=== PATIENT | male | born 1955 | race Caucasian/White ===

== ENCOUNTER → 2017-06-29 06:02 | Outpatient (CLI) | payer BC, SELFPAY ==
[2017-06-29 07:54] LABS: Absolute Lymphocyte Count 1.59 X10^3/ul (0.83-4.51); Absolute Neutrophil Count 5.7 X10^3/uL (2.0-7.7); Basophil# 0.03 X10^3/uL; Basophil% 0.4 % (0-1); Eosinophil# 0.19 X10^3/uL; Eosinophils% 2.3 % (0-5); Hematocrit 45.9 % (40-54); Hemoglobin 15.3 g/dl (13.0-16.5); Lymphocyte # 1.59 X10^3/ul (4.0); Mean Corp Hgb Conc 33.3 g/gl (32-36); Mean Corpuscular Hgb 27.1 pg (27.0-32.0); Mean Corpuscular Volume 81.4 fL (80-94); Mean Platelet Vol. 9.3 fl (6.2-12.0); Monocyte# 0.79 X10^3/uL; Monocyte% 9.4 % (0-10); Neutrophil # 5.73 X10^3/uL (2.7-7.7); Neutrophil % 68.3 % (47-70); Platelet Count 157 K/mm3 (150-450); RBC Distribution Width CV 13.3 % (11.6-14.6); RBC Distribution Width SD 39.9 fl (35.1-43.9); Red Blood Count 5.64 M/mm3 (4.6-6.2); White Blood Count 8.4 K/mm3 (4.4-11.0)
[2017-06-29 07:56] LABS: POSITIVE COUNT NO; POSITIVE DIFFERENTIAL NO; POSITIVE MORPHOLOGY NO
[2017-06-29 08:14] LABS: Erythrocyte Sedimentation Rate 3 mm/hr (0-20)
[2017-06-29 08:20] LABS: Rheumatoid Factor < 10.0 IU/mL (<15)
[2017-07-01 11:02] LABS: ANTINUCLEAR ANTIBODIES DIRECT Negative (Negative)
== END ==
PROVIDERS: Family Provider Family Medicine; PCP Family Medicine; Visit Provider Family Medicine
DX: M25.50 Pain in unspecified joint (principal)
CPT/HCPCS: 36415; 82306; 85025; 85652; 86038; 86431

== ENCOUNTER → 2018-03-11 14:28 | Outpatient (CLI) | payer BC, SELFPAY ==
--- NOTE | 2018-03-11 14:31 | RAD_ITS ---
STUDY: X-RAY - LEFT KNEE REASON FOR EXAM: Male, 62 years old. Left-sided knee pain TECHNIQUE: 3 view(s) of the knee. COMPARISON: None. FINDINGS: There are no acute fractures or dislocations and no knee joint effusion. The quadriceps and patellar tendons are normal. A small bony enthesophyte from the superior margin of the patella is noted. There is no osteoarthritis RAD/Knee 3 Views IMPRESSION: No acute fractures. A small bony enthesophyte from the superior margin of the patella Electronically Signed: Kvng Mares MD at 4:52 EDT Tel , Service support ,
== END ==
PROVIDERS: Family Provider Family Medicine; PCP Family Medicine; Referring Provider Family Medicine; Visit Provider Family Medicine
DX: M25.562 Pain in left knee (principal)
CPT/HCPCS: 73562

== ENCOUNTER → 2018-03-15 14:44 | Outpatient (CLI) | payer BC, SELFPAY ==
[2018-03-15 16:09] LABS: Anion Gap 7 (5-15); BUN 18 mg/dL (7-18); BUN/Creat Ratio 20.4 RATIO (10-20); Calcium,Total 8.3 mg/dL (8.5-10.1); Chloride 102 mmol/L (98-107); Cholesterol 154 mg/dL (200); Creatinine, Serum 0.88 mg/dL (0.70-1.30); EST Glomerular Filtration Rate 93 mL/min (>60); Est Glom Filt Rate - Afr Amer 113 mL/min (>60); Glucose 84 mg/dL (74-106); High Density Lipoprotein 36 mg/dL; PSA,Total - Annual Screen 0.74 ng/mL (0.00-4.00); Potassium 3.4 mmol/L (3.5-5.1); Sodium Level 138 mmol/L (136-145); Triglycerides 124 mg/dL; Very Low Density Lipoprotein 25 mg/dL (5-40)
[2018-03-16 11:39] LABS: Vitamin D,25 Hydroxy 29.1 ng/mL (29.95-100.01)
== END ==
PROVIDERS: Family Provider Family Medicine; PCP Family Medicine; Visit Provider Family Medicine
DX: E55.9 Vitamin D deficiency, unspecified (principal); Z12.5 Encounter for screening for malignant neoplasm of prostate; Z13.1 Encounter for screening for diabetes mellitus; Z13.220 Encounter for screening for lipoid disorders
CPT/HCPCS: 36415; 80048; 80061; 82306; 84153; G0103

== ENCOUNTER → 2019-04-04 08:06 | Outpatient (CLI) | payer BC, SELFPAY ==
[2019-04-04 10:25] LABS: Vitamin D,25 Hydroxy 54.3 ng/mL (29.95-100.01)
[2019-04-04 10:34] LABS: Anion Gap 6 (5-15); BUN 15 mg/dL (7-18); BUN/Creat Ratio 15.1 RATIO (10-20); Calcium,Total 8.6 mg/dL (8.5-10.1); Chloride 105 mmol/L (98-107); Cholesterol 133 mg/dL (200); Creatinine, Serum 0.99 mg/dL (0.70-1.30); EST Glomerular Filtration Rate 81 mL/min (>60); Est Glom Filt Rate - Afr Amer 98 mL/min (>60); Glucose 120 mg/dL (74-106); High Density Lipoprotein 31 mg/dL; Potassium 3.8 mmol/L (3.5-5.1); Sodium Level 136 mmol/L (136-145); Triglycerides 97 mg/dL; Very Low Density Lipoprotein 19 mg/dL (5-40)
== END ==
PROVIDERS: Family Provider Family Medicine; PCP Family Medicine; Referring Provider Family Medicine; Visit Provider Family Medicine
DX: E55.9 Vitamin D deficiency, unspecified (principal); I10 Essential (primary) hypertension
CPT/HCPCS: 36415; 80048; 80061; 82306

== ENCOUNTER → 2019-04-07 05:49 | Outpatient (CLI) | payer BC, SELFPAY ==
[2019-04-07 07:58] LABS: Glucose 104 mg/dL (74-106)
[2019-04-07 08:14] LABS: Hemoglobin A1c 6.2 % (4.2-6.3)
== END ==
PROVIDERS: Family Provider Family Medicine; PCP Family Medicine; Referring Provider Family Medicine; Visit Provider Family Medicine
DX: R73.01 Impaired fasting glucose (principal)
CPT/HCPCS: 36415; 82947; 83036

== ENCOUNTER → 2019-10-04 05:45 | Outpatient (CLI) | payer BC, SELFPAY ==
[2019-10-04 07:28] LABS: Absolute Lymphocyte Count 1.78 X10^3/uL (0.83-4.51); Absolute Neutrophil Count 5.9 X10^3/uL (2.0-7.7); Basophil# 0.05 X10^3/uL; Basophil% 0.6 % (0-1); Eosinophil# 0.15 X10^3/uL; Eosinophils% 1.7 % (0-5); Hemoglobin 14.8 g/dL (13.0-16.5); Lymphocyte # 1.78 X10^3/ul (4.0); Lymphocyte % 20.6 % (19-41); Mean Corp Hgb Conc 32.9 g/dL (32-36); Mean Corpuscular Hgb 27.1 pg (27.0-32.0); Mean Corpuscular Volume 82.3 fL (80-94); Mean Platelet Vol. 9.1 fl (6.2-12.0); Monocyte# 0.69 X10^3/uL; NRBC Flagged by Analyzer 0 % (0-5); Neutrophil # 5.86 X10^3/uL (2.7-7.7); Neutrophil % 68.1 % (47-70); Platelet Count 185 K/mm3 (150-450); RBC Distribution Width CV 13.1 % (11.6-14.6); RBC Distribution Width SD 38.8 fl (35.1-43.9); Red Blood Count 5.47 M/mm3 (4.6-6.2); White Blood Count 8.6 K/mm3 (4.4-11.0)
[2019-10-04 08:06] LABS: Anion Gap 7 (5-15); BUN 18 mg/dL (7-18); BUN/Creat Ratio 17.5 RATIO (10-20); Chloride 104 mmol/L (98-107); Cholesterol 164 mg/dL (200); Creatinine, Serum 1.03 mg/dL (0.70-1.30); EST Glomerular Filtration Rate 78 mL/min (>60); Est Glom Filt Rate - Afr Amer 94 mL/min (>60); Glucose 143 mg/dL (74-106); High Density Lipoprotein 30 mg/dL; Potassium 4.1 mmol/L (3.5-5.1); Sodium Level 139 mmol/L (136-145); Thyroid Stim Hormone (TSH) 0.66 uIU/mL (0.358-3.74); Triglycerides 193 mg/dL; Very Low Density Lipoprotein 39 mg/dL (5-40)
== END ==
PROVIDERS: PCP Family Medicine; Referring Provider Family Medicine; Visit Provider Family Medicine
DX: R53.83 Other fatigue (principal); I10 Essential (primary) hypertension
CPT/HCPCS: 36415; 80048; 80061; 84403; 84443; 85025

== ENCOUNTER → 2020-04-03 15:42 | Outpatient (CLI) | payer BC, SELFPAY ==
[2020-04-03 19:24] LABS: Anion Gap 5 (5-15); BUN 17 mg/dL (7-18); BUN/Creat Ratio 15.9 RATIO (10-20); Calcium,Total 8.9 mg/dL (8.5-10.1); Chloride 105 mmol/L (98-107); Creatinine, Serum 1.07 mg/dL (0.70-1.30); EST Glomerular Filtration Rate 74 mL/min (>60); Est Glom Filt Rate - Afr Amer 90 mL/min (>60); Glucose 185 mg/dL (74-106); Sodium Level 136 mmol/L (136-145)
== END ==
PROVIDERS: PCP Family Medicine; Visit Provider Family Medicine
DX: E55.9 Vitamin D deficiency, unspecified (principal); I10 Essential (primary) hypertension
CPT/HCPCS: 36415; 80048; 82306

== ENCOUNTER → 2021-01-14 05:54 | Outpatient (CLI) | payer BC, SELFPAY ==
[2021-01-14 07:56] LABS: Anion Gap 7 (5-15); BUN 18 mg/dL (7-18); BUN/Creat Ratio 17.8 RATIO (10-20); Calcium,Total 8.4 mg/dL (8.5-10.1); Chloride 101 mmol/L (98-107); Cholesterol 156 mg/dL (200); Creatinine, Serum 1.01 mg/dL (0.70-1.30); EST Glomerular Filtration Rate 79 mL/min (>60); Est Glom Filt Rate - Afr Amer 96 mL/min (>60); Glucose 325 mg/dL (74-106); High Density Lipoprotein 26 mg/dL; Sodium Level 135 mmol/L (136-145); Triglycerides 298 mg/dL; Very Low Density Lipoprotein 60 mg/dL (5-40)
== END ==
PROVIDERS: PCP Family Medicine; Referring Provider Family Medicine; Visit Provider Family Medicine
DX: I10 Essential (primary) hypertension (principal)
CPT/HCPCS: 36415; 80048; 80061

== ENCOUNTER → 2021-03-14 14:27 | Outpatient (CLI) | payer BC, SELFPAY ==
[2021-03-14 18:06] LABS: Anion Gap 8 (5-15); BUN 16 mg/dL (7-18); BUN/Creat Ratio 17.4 RATIO (10-20); Calcium,Total 8.8 mg/dL (8.5-10.1); Chloride 103 mmol/L (98-107); Creatinine, Serum 0.92 mg/dL (0.70-1.30); EST Glomerular Filtration Rate 88 mL/min (>60); Est Glom Filt Rate - Afr Amer 106 mL/min (>60); Glucose 93 mg/dL (74-106); Potassium 3.9 mmol/L (3.5-5.1); Sodium Level 136 mmol/L (136-145)
== END ==
PROVIDERS: PCP Family Medicine; Referring Provider Family Medicine; Visit Provider Family Medicine
DX: E11.9 Type 2 diabetes mellitus without complications (principal); I10 Essential (primary) hypertension
CPT/HCPCS: 36415; 80048; 83036

== ENCOUNTER 2021-07-02 09:22 | Outpatient (CLI) | payer BC, SELFPAY ==
[2021-07-02 10:47] LABS: Microalbumin,Random Urine 28.1 mg/L (NO RANGE EST.); Microalbumin:Creatinine Ratio 24.9 mg/g CRE (<30 mg/g CRE)
[2021-07-02 10:50] LABS: Hemoglobin A1c 6.3 % (3.8-5.6)
[2021-07-02 11:08] LABS: Anion Gap 7 (5-15); BUN 16 mg/dL (7-18); BUN/Creat Ratio 21.2 RATIO (10-20); Calcium,Total 9.2 mg/dL (8.5-10.1); Chloride 106 mmol/L (98-107); Cholesterol 153 mg/dL (200); Creatinine, Serum 0.76 mg/dL (0.70-1.30); EST Glomerular Filtration Rate 110 mL/min (>60); Est Glom Filt Rate - Afr Amer 134 mL/min (>60); Glucose 108 mg/dL (74-106); High Density Lipoprotein 32 mg/dL; Potassium 4.4 mmol/L (3.5-5.1); Sodium Level 139 mmol/L (136-145); Triglycerides 144 mg/dL; Very Low Density Lipoprotein 29 mg/dL (5-40)
== END 2021-07-02 23:59 | disposition home or self-care (01) ==
LOC: MFPLAB 09:23
PROVIDERS: PCP Family Medicine; Referring Provider Family Medicine; Visit Provider Family Medicine
DX: E11.9 Type 2 diabetes mellitus without complications (principal)
CPT/HCPCS: 36415; 80048; 80061; 82043; 82570; 83036

== ENCOUNTER 2021-08-04 03:39 | Observation (INO) | payer BC, SELFPAY ==
[2021-08-04] VITALS (12 sets, daily range): BP systolic 107–146; BP diastolic 69–84; PULSE 72–95; RESP 16–20; TEMP 36.4–37.2; O2SAT 92–99; BMI 31.8; BMI 31.4
--- NOTE | 2021-08-04 04:07 | CT_ITS ---
STUDY: CTA OF THE ABDOMINAL AORTA AND BILATERAL LOWER EXTREMITIES REASON FOR EXAM: Male, 65 years old. lower abd pain RADIATION DOSAGE (If Supplied By Facility): CTDIvol = ( 7.3 ) mGy, DLP = ( 1642.41 ) mGycm TECHNIQUE: Axial CT angiography multi-detector data acquisition was obtained from the to the following intravenous administration of ISOVUE 370-100ml. Axial images and MIP images were reconstructed from the axial data set. Post-processing of the angiographic images was performed, with multiplanar reformation and 3D reconstruction. Individualized dose optimization techniques were used for this CT. TECHNICAL QUALITY: Good COMPARISON: None. Descriptors of Narrowing: None (0%) Mild (< 50%) Moderate (50-70%) Severe (70-90%) Subtotal/Total Occlusion (90-100%) Non-Evaluable (technically non-diagnostic FINDINGS: Abdominal aorta: No demonstrated narrowing. Celiac and superior mesenteric arteries: No demonstrated narrowing. Inferior mesenteric artery: No demonstrated narrowing. Right renal artery(arteries): No demonstrated narrowing. Left renal artery(arteries): No demonstrated narrowing. Right common iliac artery: No demonstrated narrowing. Right external iliac artery: No demonstrated narrowing. Right internal iliac artery: No demonstrated narrowing. Left common iliac artery: No demonstrated narrowing. Left external iliac artery: No demonstrated narrowing. Left internal iliac artery: No demonstrated narrowing. RIGHT LOWER EXTREMITY Right common femoral artery: No demonstrated narrowing. Right profundus femoris: No demonstrated narrowing. Right superficial femoral: No demonstrated narrowing. Right popliteal artery: No demonstrated narrowing. Right tibioperoneal trunk: Not well visualized. Right anterior tibial artery: Not well visualized Right posterior tibial artery: Not well visualized Right peroneal artery: Not well visualized. LEFT LOWER EXTREMITY Left common femoral artery: No demonstrated narrowing. Left profundus femoris: No demonstrated narrowing. Left superficial femoral: No demonstrated narrowing. Left popliteal artery: No demonstrated narrowing. Left tibioperoneal trunk: Not well visualized. Left anterior tibial artery: Not well visualized. Left posterior tibial artery: Not well visualized. Left peroneal artery: No demonstrated narrowing. CT/CTA Abd w/Runoff W/WO Contrast IMPRESSION: Normal abdominal aorta and bilateral lower extremity run-off No demonstrated narrowing. Electronically Signed: Brad Bland MD at 6:09 EDT ,
--- NOTE | 2021-08-04 04:09 | EDS_ITS ---
HPI History of Present Illness Chief Complaint: Back Informant: patient Narrative Narrative: Patient is a 65-year-old male with history of hypertension and diabetes presenting with 2 to 3 days of worsening left back and lower abdomen pain. Denies any injuries or inciting factors. Does not take anything for pain today. He states it started with pain in his left lower back but now is having increased pain in his left lower abdomen. Is not sure if it radiates. Was having constipation which is unusual for him however he took milk of magnesia yesterday and then had a large bowel movement. Denies any significant nausea and no vomiting. Denies any fever or chills. Denies any dysuria, hematuria or difficulty urinating. Denies any numbness or weakness of his legs. Denies any history of kidney stones or back pain. No other complaints at this time. PFSH PFS Home Medications glimepiride 1 mg DAILY 08/04/21 [History Last Taken Unknown] lisinopril 10 mg PO DAILY 08/04/21 [History Last Taken Unknown] magnesium hydroxide [Milk of Magnesia] 400 mg PO DAILY 08/04/21 [History Last Taken Unknown] multivitamin 1 tab PO DAILY 08/04/21 [History Last Taken Unknown] Allergy/AdvReac Type Severity Reaction Status Date / Time Tetracyclines AdvReac Severe Abd Verified 07/15/21 15:34 cramps/diarrhea Social History Smoking Status: Never smoker ROS ROS ED Constitutional Constitutional ED: Denies chills or fever(s) Eyes Eyes: Denies change in vision ENT ENT ED: Denies ear pain Cardiovascular Cardiovascular: Denies chest pain or palpitations Respiratory/Chest Respiratory/Chest: Denies dyspnea Gastrointestinal Gastrointestinal: Reports abdominal pain, constipation and nausea; Denies vomiting Genitourinary Genitourinary ED: Denies dysuria, hematuria or urinary frequency Musculoskeletal Musculoskeletal: Reports back pain; Denies myalgias Integumentary Denies rash Neurologic Neurologic: Denies headache(s), paresthesias or weakness Psychiatric Psychiatric: Denies depression EXAM Physical Exam Const Vital Signs: 08/04/21 03:40 08/04/21 06:41 Temperature 99.0 F Temperature Source Oral Pulse Rate 95 87 Respiratory Rate 17 19 H Blood Pressure 146/82 H 123/84 H Blood Pressure Mean 103 97 Pulse Ox 95 99 Oxygen Delivery Method Room Air Room Air Positive well nourished and well developed Constitutional Narrative: Patient is in no acute distress but does appear significantly uncomfortable secondary to pain General Appearance ED: well developed HEENT Reports moist mucous membranes Negative for trauma Eyes PERRL and EOMs intact bilaterally Neck supple and no JVD Chest Wall inspection of chest normal Resp clear to auscultation bilaterally Cardio regular rate, regular rhythm and no murmurs GI GI Narrative: No palpable mass appreciated Inspection: abdominal distention Auscultation: normoactive bowel sounds Palpation: soft and tender LLQ; Negative for guarding Back/Spine General Back: CVA tenderness left Extremity normal to inspection Extremity Narrative: Diminished DP pulse on the left lower extremity compared to the right. Equal radial pulses. Equal femoral pulses. General Extremety ED: Negative for edema or tenderness General Extremity: Negative for edema Neuro oriented x3 and no sensory deficits noted Sensorium / Orientation: alert Motor Exam: Negative for general weakness Psych mental status grossly normal Mood & Affect: Negative for depressed Skin no rashes or lesions noted and no wounds MDM MDM MDM Narrative Medical decision making narrative: Patient evaluated for worsening low back pain and lower abdomen pain. He is hypertensive on arrival. He is given IV fluids, morphine and Zofran for symptom control. He feels much better with this treatment. Patient does have unequal DP pulses of however he has equal femoral pulses. I did get a CTA of the abdomen and pelvis for concern of subacute dissection as a cause of his pain. Differential does also include renal colic or diverticulitis. CTA does not show any acute vascular abnormalities however there appears to be an obstructing proximal stone at the left ureter with hydronephrosis on my interpretation. I did contact radiology for overread and had to leave a message. Lab work is remarkable for leukocytosis of 14.1. His creatinine is elevated at 1.57. His baseline appears to be 1. Lactate is normal. Urinalysis shows blood but no signs of infection. Patient will be admitted for MAYELIN secondary to obstructing ureteral stone to urology. Patient is agreeable to this plan of care. Lab Data Attestation: I reviewed the patient's lab results. Labs: Laboratory Results - last 24 hr 08/04/21 08/04/21 08/04/21 03:50 03:50 04:15 WBC 14.1 H RBC 5.33 Hgb 14.7 Hct 42.3 MCV 79.4 L MCH 27.6 MCHC 34.8 RDW Std Deviation 37.3 RDW Coeff of Kanika 13.2 Plt Count 197 MPV 9.2 Immature Gran % (Auto) 0.600 Neut % (Auto) 80.0 H Lymph % (Auto) 8.5 L [place] % (Auto) 10.1 H Eos % (Auto) 0.5 Baso % (Auto) 0.3 Absolute Neuts (auto) 11.3 H Absolute Lymphs (auto) 1.20 Nucleated RBC % 0 Sodium 134 L Potassium 4.1 Chloride 102 Carbon Dioxide 26.0 Anion Gap 6 BUN 25 H Creatinine 1.57 H Estim Creat Clear Calc 47.53 Est GFR (MDRD) Af Amer 57 L Est GFR (MDRD) Non-Af 47 L BUN/Creatinine Ratio 15.9 Glucose 128 H Lactic Acid 1.1 Calcium 8.8 Total Bilirubin 1.30 H AST 13 L ALT 22 Alkaline Phosphatase 62 Total Protein 7.9 Albumin 4.1 Globulin 3.8 Albumin/Globulin Ratio 1.1 Urine Color Urine Clarity Urine pH Ur Specific [place] Urine Protein Urine Glucose (UA) Urine Ketones Urine Occult Blood Urine Nitrite Urine Bilirubin Urine Urobilinogen Ur Leukocyte Esterase Urine RBC Urine WBC Ur Squamous Epith Cells Urine Bacteria Urine Mucus 08/04/21 05:45 WBC RBC Hgb Hct MCV MCH MCHC RDW Std Deviation RDW Coeff of Kanika Plt Count MPV Immature Gran % (Auto) Neut % (Auto) Lymph % (Auto) [place] % (Auto) Eos % (Auto) Baso % (Auto) Absolute Neuts (auto) Absolute Lymphs (auto) Nucleated RBC % Sodium Potassium Chloride Carbon Dioxide Anion Gap BUN Creatinine Estim Creat Clear Calc Est GFR (MDRD) Af Amer Est GFR (MDRD) Non-Af BUN/Creatinine Ratio Glucose Lactic Acid Calcium Total Bilirubin AST ALT Alkaline Phosphatase Total Protein Albumin Globulin Albumin/Globulin Ratio Urine Color Yellow Urine Clarity Clear Urine pH 5.0 Ur Specific [place] 1.015 Urine Protein 15 H Urine Glucose (UA) Normal Urine Ketones 50 H Urine Occult Blood 150 H Urine Nitrite Negative Urine Bilirubin Negative Urine Urobilinogen Normal Ur Leukocyte Esterase Negative Urine RBC 0-5 SEEN Urine WBC 0 SEEN Ur Squamous Epith Cells 0 SEEN Urine Bacteria 0 SEEN Urine Mucus 0 SEEN Radiography Diagnostic Testing: Clinical Impression(s) from Imaging Studies Abdomen/Pelvis CTA 08/04/21 04:07 IMPRESSION: Normal abdominal aorta and bilateral lower extremity run-off No demonstrated narrowing. Electronically Signed: Brad Bland MD at 6:09 EDT , Discharge Plan Triage Chief Complaint: Back ED Provider: Zee Steel Dx/Rx/DC Orders Clinical Impression: Left ureteral calculus, MAYELIN (acute kidney injury) Primary Care Provider: Isaiah Light Disposition Disposition: Acute Care Hospital [facility]
[2021-08-04 04:18] LABS: Absolute Neutrophil Count 11.3 X10^3/uL (2.0-7.7); Basophil# 0.04 X10^3/uL; Basophil% 0.3 % (0-1); Eosinophil# 0.07 X10^3/uL; Eosinophils% 0.5 % (0-5); Hematocrit 42.3 % (40-54); Hemoglobin 14.7 g/dL (13.0-16.5); Lymphocyte % 8.5 % (19-41); Mean Corp Hgb Conc 34.8 g/dL (32-36); Mean Corpuscular Hgb 27.6 pg (27.0-32.0); Mean Corpuscular Volume 79.4 fL (80-94); Mean Platelet Vol. 9.2 fl (6.2-12.0); Monocyte# 1.43 X10^3/uL; Monocyte% 10.1 % (0-10); NRBC Flagged by Analyzer 0 % (0-5); Neutrophil # 11.29 X10^3/uL (2.7-7.7); Platelet Count 197 K/mm3 (150-450); RBC Distribution Width CV 13.2 % (11.6-14.6); RBC Distribution Width SD 37.3 fl (35.1-43.9); Red Blood Count 5.33 M/mm3 (4.6-6.2); White Blood Count 14.1 K/mm3 (4.4-11.0)
[2021-08-04] MEDS: 0.9% Normal Saline 1,000 ML 1000 ML IV (04:22)
[2021-08-04] MEDS: Morphine 4 MG/ML Syringe IV (04:22)
[2021-08-04] MEDS: Ondansetron 4 MG/2 ML Vial IV (04:22)
[2021-08-04 04:39] LABS: ALB/GLOB Ratio 1.1 RATIO (0.9-2.4); AST(SGOT) 13 U/L (15-37); Alanine Aminotransfer ALT/SGPT 22 U/L (16-61); Albumin, Serum 4.1 g/dL (3.2-5.0); Alkaline Phosphatase 62 U/L (45-117); Anion Gap 6 (5-15); BUN 25 mg/dL (7-18); BUN/Creat Ratio 15.9 RATIO (10-20); Calcium,Total 8.8 mg/dL (8.5-10.1); Chloride 102 mmol/L (98-107); Creatinine, Serum 1.57 mg/dL (0.70-1.30); EST Glomerular Filtration Rate 47 mL/min (>60); Est Glom Filt Rate - Afr Amer 57 mL/min (>60); Estimated Creatinine Clearance 47.53 ml/min; Globulin 3.8 g/dL (2.2-4.2); Glucose 128 mg/dL (74-106); Potassium 4.1 mmol/L (3.5-5.1); Protein, Total 7.9 g/dL (6.4-8.2); Sodium Level 134 mmol/L (136-145)
[2021-08-04 05:11] LABS: Lactic Acid 1.1 mmol/L (0.4-1.9)
[2021-08-04 05:54] LABS: Bacteria 0 SEEN /hpf (None Seen); Mucous, Urine 0 SEEN /hpf (<or=2+); Squamous Epithelial Cells - UA 0 SEEN /hpf (0-5); White Blood Cells 0 SEEN /hpf (0-5)
[2021-08-04 05:55] LABS: Color, Urine Yellow (Yellow); Glucose, Dipstick Normal (Normal); Ketone-Dipstick 50 mg/dl (Negative); Leukocyte Esterase-Dipstick Negative /ul (Negative); Nitrite-Dipstick Negative (Negative); Occult Blood-Urine 150 /ul (Negative); Protein-Dipstick 15 mg/dl (Negative); Specific Gravity, Urine 1.015 (1.002-1.030); Urine Bilirubin Dipstick Negative (Negative); Urine Clarity Clear (Clear); Urine Urobilinogen Normal (Normal)
[2021-08-04 06:03] LABS: Red Blood Cells-Urine 0-5 SEEN /hpf (0-5)
--- NOTE | 2021-08-04 07:32 | HP.PCM_ITS ---
HPI - General General Date of Admission: 08/04/21 HPI Narrative CLIFF BARBOZA, is a 65 M who presents wih a 7mm left UPJ obstructioning stone with MAYELIN and flank pain. [facility] Home Medications glimepiride 1 mg DAILY 08/04/21 [History Last Taken Unknown] lisinopril 10 mg PO DAILY 08/04/21 [History Last Taken Unknown] magnesium hydroxide [Milk of Magnesia] 400 mg PO DAILY 08/04/21 [History Last Taken Unknown] multivitamin 1 tab PO DAILY 08/04/21 [History Last Taken Unknown] Allergy/AdvReac Type Severity Reaction Status Date / Time Tetracyclines AdvReac Severe Abd Verified 07/15/21 15:34 cramps/diarrhea Social History Smoking Status: Never smoker Vital Signs Vital Signs Vital Signs: 08/04/21 03:40 08/04/21 06:41 Temperature 99.0 F Temperature Source Oral Pulse Rate 95 87 Respiratory Rate 17 19 H Blood Pressure 146/82 H 123/84 H Blood Pressure Mean 103 97 Pulse Ox 95 99 Oxygen Delivery Method Room Air Room Air Weight Weight: 97.7 kg Body Mass Index (BMI) 31.8 Physical Exam Const alert and oriented x3 General Appearance: cooperative HEENT normocephalic, head/scalp atraumatic, EAC's normal and TM's normal bilaterally Eyes PERRL and EOMs intact bilaterally Pupil: sluggish Neck no lymphadenopathy, supple and no JVD General: trachea midline Lymph Lymphatic: no lymphadenopathy noted, lymphedema and lymphadenopathy Resp normal respiratory effort, normal air movement and clear to auscultation bilaterally Cardio regular rate, regular rhythm and peripheral pulses 2+ throughout GI soft to palpation, non-tender and non-distended Extremity normal capillary refill and no clubbing, cyanosis or edema General Extremity: no tenderness to palpation of joints or extremities Skin no rashes or lesions noted General Skin Exam: turgor normal Lesions: no lesions Rashes: no rashes Neuro CN's II-XII intact bilaterally Speech: speech normal Motor Exam: strength 5/5 throughout; Negative for general weakness Psych thought process normal, cooperative and affect normal Appearance: appropriate Results Lab / Micro Data Result Diagrams: 08/04/21 03:50 08/04/21 03:50 Labs: Laboratory Results - last 24 hr 08/04/21 03:50: WBC 14.1 H, RBC 5.33, Hgb 14.7, Hct 42.3, MCV 79.4 L, MCH 27.6, MCHC 34.8, RDW Std Deviation 37.3, RDW Coeff of Kanika 13.2, Plt Count 197, MPV 9.2, Immature Gran % (Auto) 0.600, Neut % (Auto) 80.0 H, Lymph % (Auto) 8.5 L, [place] % (Auto) 10.1 H, Eos % (Auto) 0.5, Baso % (Auto) 0.3, Absolute Neuts (auto) 11.3 H, Absolute Lymphs (auto) 1.20, Nucleated RBC % 0 08/04/21 03:50: Sodium 134 L, Potassium 4.1, Chloride 102, Carbon Dioxide 26.0, Anion Gap 6, BUN 25 H, Creatinine 1.57 H, Estim Creat Clear Calc 47.53, Est GFR (MDRD) Af Amer 57 L, Est GFR (MDRD) Non-Af 47 L, BUN/Creatinine Ratio 15.9, Glucose 128 H, Calcium 8.8, Total Bilirubin 1.30 H, AST 13 L, ALT 22, Alkaline Phosphatase 62, Total Protein 7.9, Albumin 4.1, Globulin 3.8, Albumin/Globulin Ratio 1.1 08/04/21 04:15: Lactic Acid 1.1 08/04/21 05:45: Urine Color Yellow, Urine Clarity Clear, Urine pH 5.0, Ur Specific [place] 1.015, Urine Protein 15 H, Urine Glucose (UA) Normal, Urine Ketones 50 H, Urine Occult Blood 150 H, Urine Nitrite Negative, Urine Bilirubin Negative, Urine Urobilinogen Normal, Ur Leukocyte Esterase Negative, Urine RBC 0-5 SEEN, Urine WBC 0 SEEN, Ur Squamous Epith Cells 0 SEEN, Urine Bacteria 0 SEEN, Urine Mucus 0 SEEN Radiology Impression Abdomen/Pelvis CTA 08/04/21 04:07 IMPRESSION: Normal abdominal aorta and bilateral lower extremity run-off No demonstrated narrowing. Electronically Signed: Brad Bland MD at 6:09 EDT , Assessment & Plan Assessment/Plan (1) Left ureteral calculus: PLAN: admit for pain control and plan for left stent
[2021-08-04] MEDS: 0.9% Normal Saline 1,000 ML 125 ML IV (09:12)
[2021-08-04] MEDS: Morphine 2 MG/ML Syringe 1 MG IV (09:37)
--- NOTE | 2021-08-04 09:58 | EKG12_ITS ---
Test Reason : PRE OP Blood Pressure : / mmHG Vent. Rate : 081 BPM Atrial Rate : 081 BPM P-R Int : 144 ms QRS Dur : 094 ms QT Int : 356 ms P-R-T Axes : 047 010 011 degrees QTc Int : 413 ms Normal sinus rhythm Normal ECG When compared with ECG of 30-SEP-2007 08:40, No significant change was found Confirmed by RONA SLOAN, GOPAL ([id number]), development editor RAMON ALLISON ([id number]) on 08/05/2021 8:59:01 AM Referred By: SABI Confirmed By:GOPAL REA MD
--- NOTE | 2021-08-04 12:02 | NURSING ---
pt transported off unit via bed at 1130 for surgery.
[2021-08-04] MEDS: Cefazolin 2 GM in 0.9% Normal Saline 100 ML IV (12:30)
--- NOTE | 2021-08-04 12:37 | PCM.DC ---
Discharge Instructions Diet Discharge Diet: No restrictions Activity Discharge Activity: Return to Normal Activity and May Not Drive (while taking narcotic pain medications.) Dressing / Incision Call your doctor if you observe: Fever of 101 or Higher Follow Up Care Please Follow Up With: Catarino Wilkinson MD When: Call [phone] for an appointment Test Results: Test results from this visit will be discussed in further detail at your follow-up appointment, if applicable. Discharge Plan Admission Admit Date/Time: 08/04/21 09:45 Primary Reason for Your Visit: stent placement for stone Attending Provider: Catarino Wilkinson Primary Care Provider: Isaiah Light Discharge Orders/Prescriptions Prescriptions: New ciprofloxacin HCl [Cipro] 500 mg tablet 500 mg PO BID Qty: 6 RF: 0 oxycodone-acetaminophen 5-325 mg tablet 1 tab PO Q6H PRN (Reason: pain) 7 Days Qty: 14 RF: 0 Continued multivitamin Tablet 1 tab PO DAILY RF: 0 glimepiride 1 mg tablet 1 mg DAILY RF: 0 magnesium hydroxide [Milk of Magnesia] 400 mg/5 mL Suspension 400 mg PO DAILY PRN (Reason: Constipation) RF: 0 lisinopril 10 mg tablet 10 mg PO DAILY RF: 0 cholecalciferol (vitamin D3) [Vitamin D3] 125 mcg (5,000 unit) Tablet 125 mcg PO DAILY RF: 0 Referrals / Follow Up: Catarino Wilkinson MD [STAFF PHYSICIAN] - Isaiah Light MD [Primary Care Provider] - Disposition Discharge Orders: Discharge Patient (Routine); Ordered 08/04/21 Ordered By: Dr. Catarino Wilkinson
[2021-08-04] MEDS: Lidocaine Jelly 2% 20 ML Syringe (URO-JET) 1 APPLIC (12:45)
--- NOTE | 2021-08-04 17:02 | PCM.OPRPT ---
Report of Operation Date of Procedure: 08/04/21 Pre-Operative Diagnosis: left kidney stone Post-Operative Diagnosis: same Surgery/Procedure Performed:: cystoscopy and left stent placement and left retrograde pyelogram Description of Surgical Findings:: patient was taken back to the operating room after smooth induction of anesthesia is placed in dorsal lithotomy position. Penis and tussles are prepped and draped in the usual sterile fashion. I then went into the bladder with a 21 Kinyarwanda rigid cysto urethra scope. Identify the stone in the left side under fluoroscopy advance a wire pass a stone confirmed the kidney with a retrograde Polygram and then placed stent on the left side. Once that was a good position the patient is bladder was drained and aesthetic was reversed to be discharged home today with instructions to come back for an outpatient surgery for ureteroscopy laser lithotripsy. Surgeon: jd Type of Anesthesia: General Drains: stent left Admit VTE Documentation VTE Present on Admission: No VTE Mechan Device Prophylaxis: SCD's VTE Pharm Prophylaxis ordered?: No
== END 2021-08-04 15:40 | disposition home or self-care (01) ==
LOC: ED 07:29 → MS3 07:40
PROVIDERS: Admitting Provider Urology; Emergency Provider Emergency Medicine; PCP Family Medicine; Visit Provider Urology
PROC: (CPT 52332; principal; 2021-08-04 12:20)
DX: N13.2 Hydronephrosis with renal and ureteral calculous obstruction (principal); N17.9 Acute kidney failure, unspecified; E11.9 Type 2 diabetes mellitus without complications; I10 Essential (primary) hypertension; Z79.84 Long term (current) use of oral hypoglycemic drugs; Z79.899 Other long term (current) drug therapy; Z86.16 Personal history of COVID-19; G47.30 Sleep apnea, unspecified; H54.7 Unspecified visual loss
CPT/HCPCS: 52332; 00910; 75635; 76000; 80053; 81001; 83605; 85025; 87811; 93005; 96361; 96374; 96375; 96376; 99218; 99284; J7030; Q9967; A4216; C2617; G0378; J2405

== ENCOUNTER 2021-08-08 12:07 | Outpatient (CLI) | payer BC, SELFPAY ==
[2021-08-08 15:35] LABS: Absolute Neutrophil Count 6.1 X10^3/uL (2.0-7.7); Basophil# 0.06 X10^3/uL; Basophil% 0.7 % (0-1); Eosinophil# 0.22 X10^3/uL; Eosinophils% 2.4 % (0-5); Hematocrit 43.2 % (40-54); Lymphocyte % 20.7 % (19-41); Mean Corp Hgb Conc 32.4 g/dL (32-36); Mean Corpuscular Hgb 27.5 pg (27.0-32.0); Mean Corpuscular Volume 84.9 fL (80-94); Mean Platelet Vol. 9.3 fl (6.2-12.0); Monocyte# 0.79 X10^3/uL; Monocyte% 8.6 % (0-10); NRBC Flagged by Analyzer 0 % (0-5); Neutrophil # 6.12 X10^3/uL (2.7-7.7); Neutrophil % 66.8 % (47-70); Platelet Count 243 K/mm3 (150-450); RBC Distribution Width CV 13.1 % (11.6-14.6); RBC Distribution Width SD 40.8 fl (35.1-43.9); Red Blood Count 5.09 M/mm3 (4.6-6.2); White Blood Count 9.2 K/mm3 (4.4-11.0)
[2021-08-08 15:53] LABS: Anion Gap 4 (5-15); BUN 17 mg/dL (7-18); BUN/Creat Ratio 15.9 RATIO (10-20); Calcium,Total 9.1 mg/dL (8.5-10.1); Chloride 108 mmol/L (98-107); Creatinine, Serum 1.07 mg/dL (0.70-1.30); EST Glomerular Filtration Rate 74 mL/min (>60); Est Glom Filt Rate - Afr Amer 89 mL/min (>60); Glucose 86 mg/dL (74-106); Potassium 3.9 mmol/L (3.5-5.1); Sodium Level 138 mmol/L (136-145)
== END 2021-08-08 23:59 | disposition home or self-care (01) ==
LOC: MFPLAB 12:09
PROVIDERS: PCP Family Medicine; Referring Provider Family Medicine; Visit Provider Family Medicine
DX: N20.0 Calculus of kidney (principal)
CPT/HCPCS: 36415; 80048; 85025

== ENCOUNTER 2021-08-08 15:16 | Outpatient (CLI) | payer BC, SELFPAY | END 2021-08-08 23:59 | disposition home or self-care (01) | LOC: LABSPEC 15:18 | PROVIDERS: PCP Family Medicine; Referring Provider Family Medicine; Visit Provider Family Medicine | DX: N20.0 Calculus of kidney (principal) | CPT/HCPCS: 87086 ==

== ENCOUNTER 2021-09-15 06:34 | Day surgery (SDC) | payer BC, SELFPAY ==
[2021-09-15 07:04] VITALS: BP 109/63; PULSE 74; RESP 18; TEMP 36.3; O2SAT 96; BMI 30.4
[2021-09-15] MEDS: Lactated Ringers 1,000 ML 15 ML IV (07:15)
[2021-09-15 07:21] LABS: Bedside Glucose 110 mg/dL (74-106)
--- NOTE | 2021-09-15 07:22 | H&P.OPEN ---
HPI - General HPI Narrative CLIFF BARBOZA, is a 65 M who presents for screening colonoscopy. Patient had a colonoscopy [address] Morgan no polyps per patient. Recommend repeat 7 years. Since he has bowel movements daily denies any blood. Denies any chronic abdominal pain/nausea/vomiting/reflux. Patient's mother did have pancreatic cancer, patient did have a grandmother with colon cancer. PFSH Medical History (Updated 09/11/21 @ 10:45 by Destiney Javed) Arthritis Chronic cough COVID CPAP (continuous positive airway pressure) dependence Diabetes Dietary restriction Hypertension Kidney stones Leg cramps Non-smoker Sleep apnea Vision loss of left eye Vision loss of right eye Wears glasses Home Medications cholecalciferol (vitamin D3) [Vitamin D3] 125 mcg PO DAILY 08/04/21 [History Last Taken 08/03/21] glimepiride 1 mg DAILY 08/04/21 [History Last Taken 08/03/21] lisinopril 10 mg PO DAILY 08/04/21 [History Last Taken 09/15/21] multivitamin 1 tab PO DAILY 08/04/21 [History Last Taken 08/03/21] Allergy/AdvReac Type Severity Reaction Status Date / Time Tetracyclines AdvReac Severe Abd Verified 09/15/21 07:04 cramps/diarrhea Surgical History (Updated 09/11/21 @ 10:45 by Destiney Javed) Hx of colonoscopy Hx of cystoscopy Hx of inguinal hernia repair Hx of umbilical hernia repair Social History Smoking Status: Never smoker Past Medical/Surgical History Planned Operation Planned Operative Procedure/s: CSCOPE OA Previous Hospitalizations/Surgeries HX Hospitalizations: No Any Problems With Anesthesia: No You/Your Family Experience Fever (Hyperthermia) With Anes: No Cholinesterase deficiency: No Cardiovascular Hx of Irregular Heartbeat and/or Afib: No Hx Heart Attack: No Hx Congestive Heart Failure: No Hx Hypertension: Yes (CONTROLLED WITH MED) Hx Pacemaker: No Respiratory Hx Chronic Obstructive Pulmonary Disease (COPD): No Hx Asthma: No Hx Emphysema: No Hx Sleep Apnea: Yes CPAP: Yes BIPAP: No Hx Respiratory Tract Infection/Cold (presently): No Result (for STOP score): Positive Smoking Status: Never smoker Gastrointestinal Hx Gastroesophageal Reflux: No Hx Ulcer: No Neurological Hx Seizures: No Hx Head/Neck Injury: No Hx Headaches: No Hx Back Injury/Pain: No Does patient have nerve stimulator: No Reproduction : No Miscellaneous Recent Exposure to Contagious Disease: No Allergies Tetracyclines Adverse Reaction (Severe, Verified 09/15/21 07:04) Abd cramps/diarrhea Discharge Is Pt Admitted From a Detention, or a Care Home: No After D/C, Where Do you Plan to Go: Return Home Vital Signs Vital Signs Vital Signs: 09/15/21 07:04 Temperature 97.3 F L Temperature Source Temporal Pulse Rate 74 Respiratory Rate 18 Respiratory Pattern Normal Blood Pressure 109/63 Blood Pressure Mean 78 Blood Pressure Source Monitor Blood Pressure Position Semi-Fowlers Blood Pressure Location Right Arm Pulse Ox 96 Oxygen Delivery Method Room Air Weight Weight: 205 lb 14.588 oz Body Mass Index (BMI) 30.4 Physical Exam Const alert, oriented x3 and no apparent distress HEENT normocephalic and head/scalp atraumatic Resp normal respiratory effort Cardio regular rate GI soft to palpation and non-tender; Negative for non-distended Palpation: Negative for guarding Extremity no clubbing, cyanosis or edema Neuro CN's II-XII intact bilaterally Psych mental status grossly normal Assessment & Plan Assessment/Plan (1) Encounter for screening for malignant neoplasm of colon: Procedure Criteria Type of Procedure Procedure Type: Elective Elective Risks - COVID COVID Risk Discussion: The surgeon/proceduralist and patient have discussed in detail the risk of exposure to and/or potential harm posed by the COVID-19 virus with having a surgery/procedure at this time versus the risk of delaying the surgery/procedure. It is not possible to know either the risk of delaying the surgery or procedure or chance of getting an infection with perfect accuracy, but a joint decision was made between the patient and the surgeon/proceduralist to proceed at this time with the scheduled surgery/procedure as indicated on the consent form. Surgery Risks - Colonoscopy Risks Include but are not Limited To: Risks include but are not limited to: Bleeding, perforation requiring further surgery, inability to complete colonoscopy requiring barium enema.
--- NOTE | 2021-09-15 08:15 | COLBX_PTH ---
PATIENT: CLIFF BARBOZA LOC: [facility] U#:[id number] AGE/SX: 65/M ROOM: RE09/15/[address]: Dr. Gabriela Del Rio MD : [id number] BED: DIS: 09/15/2021 SPEC #: [id number] RECD: 09/15/21 13:49 STATUS: JERICHO ROLAND #: [id number] JEWELS: 09/15/21 08:[address]: Gabriela Del Rio DEPT: SURGICAL PATHOLOGY RECD BY: Lilo Franklin ENTERED: 09/15/21 14:03 SP TYPE: COLON BX OTHR DR: Dr. Isaiah Light MD Tissues: Ascending colon Procedures: Surgery Specimen Level IV HEADER OPERATION: Colonoscopy - Open Access (MAC), Polypectomy PRE-OP DIAGNOSIS: Encounter for screening for malignant neoplasm of colon TISSUE SUBMITTED: Ascending colon polyp MICROSCOPIC DIAGNOSIS Ascending colon polyp, biopsy: Fragments of hyperplastic polyp. AM:parker 09/16/2021 MICROSCOPIC DESCRIPTION Slides are reviewed. GROSS DESCRIPTION Received in fixative is one container labeled with the patient's name and designated ascending colon polyp. The specimen consists of multiple irregular fragments of maloney soft tissue that in aggregate measure 2 x 1 x 0.2 cm. The specimen is totally submitted in one cassette. / SJ:rg 09/15/2021 TC:5 CPT: 41643
[2021-09-15 08:30] VITALS: BP 109/63; BP 119/105; PULSE 73; RESP 16; TEMP 36.9; O2SAT 97
--- NOTE | 2021-09-15 08:34 | OP.COLON_ITS ---
Patient Name: Clayton Chin Procedure Date: 09/15/2021 7:54 AM Date of : 1955 Age: 65 Procedure: Colonoscopy Indications: Screening for colorectal malignant neoplasm Providers: Gabriela Del Rio MD Referring MD: Gabriela Del Rio MD Medicines: Monitored Anesthesia Care Patient Profile: This is a 65 year old male. Last Colonoscopy: 7 years ago. Complications: No immediate complications. Procedure: Pre-Anesthesia Assessment: - Prior to the procedure, a History and Physical was performed, and patient medications and allergies were reviewed. The patient's tolerance of previous anesthesia was also reviewed. The risks and benefits of the procedure and the sedation options and risks were discussed with the patient. All questions were answered, and informed consent was obtained. Prior Anticoagulants: The patient has taken no previous anticoagulant or antiplatelet agents. ASA Grade Assessment: Per anesthesia. After reviewing the risks and benefits, the patient was deemed in satisfactory condition to undergo the procedure. After I obtained informed consent, the scope was passed under direct vision. Throughout the procedure, the patient's blood pressure, pulse, and oxygen saturations were monitored continuously. The colonoscope was introduced through the anus and advanced to the cecum, identified by the appendiceal orifice, ileocecal valve and palpation. The colonoscopy was performed without difficulty. The patient tolerated the procedure well. The quality of the bowel preparation was good. Scope In: 8:01:48 AM Scope Withdrawal Time 0 hours 19 minutes 31 seconds Scope Out: 8:26:15 AM Total Procedure Duration Time 0 hours 24 minutes 27 seconds Findings: The perianal and digital rectal examinations were normal. A 7 mm polyp was found in the ascending colon. The polyp was semi-sessile. Polypectomy was attempted, initially using a piecemeal technique with a hot snare. Polyp resection was incomplete with this device. This intervention then required a different device and polypectomy technique. The polyp was removed with a cold biopsy forceps. Resection and retrieval were complete. The exam was otherwise without abnormality on direct and retroflexion views. Impression: - One 7 mm polyp in the ascending colon, removed with a cold biopsy forceps. Resected and retrieved. - The examination was otherwise normal on direct and retroflexion views. Recommendation: - Discharge patient to home. - Resume previous diet. - Continue present medications. - Await pathology results. - Repeat colonoscopy 1-2 years for surveillance after piecemeal polypectomy. Procedure Code(s): --- Professional --- 03823, PT, Colonoscopy, flexible; with biopsy, single or multiple Diagnosis Code(s): --- Professional --- Z12.11, Encounter for screening for malignant neoplasm of colon D12.2, Benign neoplasm of ascending colon CPT copyright 2017 [employer]. All rights reserved. The codes documented in this report are preliminary and upon livestock exhibitor review may be revised to meet current compliance requirements. MD Gabriela Soriano MD 09/15/2021 8:33:58 AM This report has been signed electronically. Number of Addenda: 0 Note Initiated On: 09/15/2021 7:54 AM
[2021-09-15 08:35] VITALS: BP 109/63; BP 118/76; PULSE 69; RESP 16; O2SAT 96
--- NOTE | 2021-09-15 08:35 | OP.CCLET_ITS ---
09/15/2021 Isaiah Light MD [address] [place] [address] Re : Colonoscopy procedure for Clayton Chin Dear Dr. Light This procedure was performed on Wednesday, September 15, 2021. My impressions and recommendations are as follows: Impressions : - One 7 mm polyp in the ascending colon, removed with a cold biopsy forceps. Resected and retrieved. - The examination was otherwise normal on direct and retroflexion views. Recommendations : - Discharge patient to home. - Resume previous diet. - Continue present medications. - Await pathology results. - Repeat colonoscopy 1-2 years for surveillance after piecemeal polypectomy. My findings are described in the full procedure note, which is enclosed. If I can be of further assistance, please feel free to contact me at Doctor phone number(s): , Work: . Sincerely, MD Gabriela Soriano MD 09/15/2021 8:33:58 AM This report has been signed electronically.
[2021-09-15 08:40] VITALS: BP 109/63; BP 121/76; PULSE 71; RESP 16; O2SAT 97
[2021-09-15 08:44] VITALS: BP 109/63; BP 113/70; PULSE 66; RESP 16; TEMP 36.8; O2SAT 96
[2021-09-15 08:58] VITALS: BP 109/63
== END 2021-09-15 09:10 | disposition home or self-care (01) ==
LOC: EN 06:35 → AC 06:35
PROVIDERS: PCP Family Medicine; Referring Provider Surgery; Visit Provider Surgery
PROC: 0DJD8ZZ Inspection of Lower Intestinal Tract, Via Natural or Artificial Opening Endoscopic (ICD-10-PCS; CPT 45378; principal; 2021-09-15 08:10)
DX: Z12.11 Encounter for screening for malignant neoplasm of colon (principal); E11.9 Type 2 diabetes mellitus without complications; K63.5 Polyp of colon; I10 Essential (primary) hypertension; Z80.0 Family history of malignant neoplasm of digestive organs; Z79.84 Long term (current) use of oral hypoglycemic drugs; Z79.899 Other long term (current) drug therapy; Z86.16 Personal history of COVID-19; G47.30 Sleep apnea, unspecified
CPT/HCPCS: 45380; 82962; 87426; 88305; C9803; J7120; J2405

== ENCOUNTER → 2022-03-02 | Outpatient (CLI) | payer BC, SELFPAY ==
[2022-03-02 12:57] LABS: Anion Gap 9 (5-15); BUN 22 mg/dL (7-18); Calcium,Total 9.1 mg/dL (8.5-10.1); Chloride 105 mmol/L (98-107); Cholesterol 142 mg/dL (200); Creatinine, Serum 1.05 mg/dL (0.70-1.30); EST Glomerular Filtration Rate 75 mL/min (>60); Est Glom Filt Rate - Afr Amer 91 mL/min (>60); Glucose 99 mg/dL (74-106); High Density Lipoprotein 32 mg/dL; Potassium 4.3 mmol/L (3.5-5.1); Sodium Level 138 mmol/L (136-145); Triglycerides 121 mg/dL; Very Low Density Lipoprotein 24 mg/dL (5-40)
== END | disposition home or self-care (01) ==
LOC: MFPLAB 10:31
PROVIDERS: PCP Family Medicine; Referring Provider Family Medicine; Visit Provider Family Medicine
DX: I10 Essential (primary) hypertension (principal)
CPT/HCPCS: 36415; 80048; 80061

== ENCOUNTER → 2022-05-13 | Outpatient (CLI) | payer BC, SELFPAY ==
--- NOTE | 2022-05-13 12:37 | NEURO ---
NCS and/or EMG Patient Report Ordering Doctor: Isaiah Light DATE OF SERVICE: 05/13/22 Clayton presents electrodiagnostic testing of the right upper limb. He reports numbness and tingling in the right hand. Electrodiagnostic findings: Right median motor nerve demonstrates normal distal latency and amplitude, with normal conduction velocity. Right ulnar motor nerve demonstrates normal distal latency and amplitude with a nearly 25% drop in conduction across the elbow. Normal median, ulnar and radial sensory studies. Normal median and ulnar F-wave. On needle EMG, all muscles tested in the right upper limb showed no evidence of denervation with normal motor unit action potentials. Electrodiagnostic impression: This is an abnormal study in the right upper limb 1. Electrodiagnostic findings suggestive of right-sided ulnar neuropathy, consistent with a mild to moderate cubital tunnel syndrome. 2. No electrodiagnostic evidence is noted for median neuropathy, i.e. carpal tunnel syndrome. 3. No electrodiagnostic evidence is noted for cervical radiculopathy.
== END | disposition home or self-care (01) ==
LOC: PSN 10:45
PROVIDERS: PCP Family Medicine; Referring Provider Family Medicine; Visit Provider Family Medicine
DX: M79.601 Pain in right arm (principal)
CPT/HCPCS: 95886; 95910

== ENCOUNTER → 2022-06-24 | Outpatient (CLI) | payer BC, SELFPAY ==
--- NOTE | 2022-06-24 16:41 | RAD_ITS ---
EXAM: XR LEFT CALCANEUS, 2 OR MORE VIEWS CLINICAL INDICATION: PAIN TECHNIQUE: Lateral and plantar views of the left calcaneus. This report was created using [employer] report generation technology. COMPARISON: None. FINDINGS: BONES/JOINTS: Small plantar calcaneal spur. No acute fracture. No subluxation. Normal alignment. Preservation of the joint space. No sclerotic or destructive changes observed. SOFT TISSUES: Unremarkable. No soft tissue swelling or gas. No radiopaque foreign body. RAD/Calcaneus min 2 Views IMPRESSION: Small plantar calcaneal spur. Electronically Signed: Clayton Whittaker MD at 6:34 EST ,
== END | disposition home or self-care (01) ==
LOC: MTRAD 16:39
PROVIDERS: PCP Family Medicine; Referring Provider Family Medicine; Visit Provider Family Medicine
DX: M79.672 Pain in left foot (principal)
CPT/HCPCS: 73650

== ENCOUNTER → 2022-09-18 | Outpatient (CLI) | payer BC, SELFPAY ==
[2022-09-18 10:48] LABS: Anion Gap 7 (5-15); BUN 21 mg/dL (7-18); BUN/Creat Ratio 19.6 RATIO (10-20); Calcium,Total 9.5 mg/dL (8.5-10.1); Chloride 107 mmol/L (98-107); Cholesterol 171 mg/dL (200); Creatinine, Serum 1.07 mg/dL (0.70-1.30); EST Glomerular Filtration Rate 74 mL/min (>60); Est Glom Filt Rate - Afr Amer 89 mL/min (>60); Glucose 138 mg/dL (74-106); High Density Lipoprotein 30 mg/dL; Potassium 4.3 mmol/L (3.5-5.1); Sodium Level 141 mmol/L (136-145); Triglycerides 219 mg/dL; Very Low Density Lipoprotein 44 mg/dL (5-40)
== END | disposition home or self-care (01) ==
LOC: MFPLAB 08:47
PROVIDERS: PCP Family Medicine; Visit Provider Family Medicine
DX: E11.9 Type 2 diabetes mellitus without complications (principal); I10 Essential (primary) hypertension
CPT/HCPCS: 36415; 80048; 80061

== ENCOUNTER → 2023-01-15 | Outpatient (CLI) | payer BC, SELFPAY ==
[2023-01-15 10:10] LABS: Erythrocyte Sedimentation Rate 3 mm/hr (0-20)
[2023-01-15 10:48] LABS: Anion Gap 5 (5-15); BUN 24 mg/dL (7-18); BUN/Creat Ratio 20.5 RATIO (10-20); CRP < 2.90 mg/L (0.0-3.0); Calcium,Total 8.7 mg/dL (8.5-10.1); Chloride 109 mmol/L (98-107); Cholesterol 143 mg/dL (200); Creatinine, Serum 1.17 mg/dL (0.70-1.30); EST Glomerular Filtration Rate 66 mL/min (>60); Est Glom Filt Rate - Afr Amer 80 mL/min (>60); Glucose 131 mg/dL (74-106); High Density Lipoprotein 30 mg/dL; Potassium 4.4 mmol/L (3.5-5.1); Rheumatoid Factor < 10.0 IU/mL (<15); Sodium Level 137 mmol/L (136-145); Triglycerides 195 mg/dL; Very Low Density Lipoprotein 39 mg/dL (5-40)
[2023-01-15 12:04] LABS: Hemoglobin A1c 6.5 % (3.8-5.6)
[2023-01-19 13:07] LABS: ANTINUCLEAR ANTIBODIES DIRECT Negative (Negative)
== END | disposition home or self-care (01) ==
LOC: MFPLAB 08:51
PROVIDERS: PCP Family Medicine; Visit Provider Family Medicine
DX: E11.9 Type 2 diabetes mellitus without complications (principal); M25.50 Pain in unspecified joint
CPT/HCPCS: 36415; 80048; 80061; 83036; 85652; 86038; 86140; 86225; 86235; 86431

== ENCOUNTER → 2023-03-05 | Outpatient (CLI) | payer BC, SELFPAY ==
--- NOTE | 2023-03-05 13:47 | RAD_ITS ---
STUDY: X-RAY - ABDOMEN/PELVIS REASON FOR EXAM: Male, 67 years old. Calculated. TECHNIQUE: Single AP view of the abdomen / pelvis on 2 images. COMPARISON: None. FINDINGS: Normal visualized lung bases. Normal bowel gas pattern with no disproportionate dilatation. 1 mm in diameter calcification projected over the lower pole of the left kidney. Normal soft tissue structures. Normal visualized osseous structures. RAD/Abdomen Single View IMPRESSION: 1 mm in diameter calcification projected over the lower pole of the left kidney. No acute abnormality. Electronically Signed: Michele Hyman MD at 14:51 EDT ,
[2023-03-05 14:46] LABS: PSA,Total - Annual Screen 1.12 ng/mL (0.00-4.00)
== END | disposition home or self-care (01) ==
LOC: LAB 13:30
PROVIDERS: PCP Family Medicine; Referring Provider Urology; Visit Provider Urology
DX: Z12.11 Encounter for screening for malignant neoplasm of colon (principal); N28.89 Other specified disorders of kidney and ureter
CPT/HCPCS: 36415; 74018; 84153; G0103

== ENCOUNTER → 2023-12-22 | Outpatient (CLI) | payer BC, MEDICARE, SELFPAY ==
--- NOTE | 2023-12-22 09:37 | RAD_ITS ---
STUDY: X-RAY - RIGHT KNEE REASON FOR EXAM: Male, 68 years old. Pain in both knees. TECHNIQUE: 4 view(s) of the knee. COMPARISON: None. FINDINGS: Osteopenia. [id number] medial compartmental arthrosis. Mild lateral compartmental arthrosis. Slight lateral tilt of the patella with mild arthrosis of the patellofemoral compartment. Small joint effusion. RAD/Knee 4 or More Views IMPRESSION: Osteopenia with tricompartmental arthrosis and small joint effusion. Electronically Signed: Michele Hyman MD at 15:37 EDT ,
--- NOTE | 2023-12-22 09:37 | RAD_ITS ---
STUDY: X-RAY - LEFT KNEE REASON FOR EXAM: Male, 68 years old. Pain in both knees. TECHNIQUE: 4 view(s) of the knee. COMPARISON: March 11, 2018 FINDINGS: Stable osteopenia. Superior patellar spur. Slight progression of medial compartmental arthrosis with now small osteophytes. Mild arthrosis of the lateral femorotibial compartment with small osteophytes. Mild arthrosis of the patellofemoral compartment. Small joint effusion. Otherwise, normal soft tissues. RAD/Knee 4 or More Views IMPRESSION: Osteopenia, patellar spur and tricompartmental arthrosis most marked medially. Electronically Signed: Michele Hyman MD at 15:39 EDT ,
[2023-12-22 12:42] LABS: Anion Gap 7 (5-15); BUN 20 mg/dL (7-18); BUN/Creat Ratio 18.2 RATIO (10-20); Calcium,Total 9.4 mg/dL (8.5-10.1); Chloride 106 mmol/L (98-107); EST Glomerular Filtration Rate 71 mL/min (>60); Est Glom Filt Rate - Afr Amer 86 mL/min (>60); Glucose 203 mg/dL (74-106); Potassium 4.1 mmol/L (3.5-5.1); Sodium Level 137 mmol/L (136-145)
== END | disposition home or self-care (01) ==
PROVIDERS: PCP Family Medicine; Referring Provider Family Medicine; Visit Provider Family Medicine
DX: E11.9 Type 2 diabetes mellitus without complications (principal); M25.561 Pain in right knee; M25.562 Pain in left knee; I10 Essential (primary) hypertension
CPT/HCPCS: 36415; 73564; 80048

== ENCOUNTER → 2024-06-30 | Outpatient (CLI) | payer MEDICARE, SELFPAY ==
--- NOTE | 2024-06-30 09:49 | RAD_ITS ---
EXAM: XR Chest, 2 Views CLINICAL INDICATION: TECHNIQUE: Frontal and lateral views of the chest. COMPARISON: No relevant prior studies available. FINDINGS: LUNGS AND PLEURAL SPACES: Unremarkable. No consolidation. No pneumothorax. HEART: Unremarkable. No cardiomegaly. MEDIASTINUM: Unremarkable. Normal mediastinal contour. BONES/JOINTS: Unremarkable. No acute fracture. RAD/Chest PA and Lateral IMPRESSION: No acute cardiopulmonary process. Reading [facility]
== END | disposition home or self-care (01) ==
LOC: MTRAD 09:49
PROVIDERS: PCP Family Medicine; Referring Provider Physician Assistant Surgical; Visit Provider Physician Assistant Surgical
DX: R05.9 Cough, unspecified (principal)
CPT/HCPCS: 71046

== ENCOUNTER → 2024-10-20 | Outpatient (CLI) | payer MEDICARE, SELFPAY ==
[2024-10-20 12:56] LABS: Anion Gap 12 (5-15); BUN 20 mg/dL (4-19); BUN/Creat Ratio 18.2 RATIO (10-20); Calcium,Total 9.3 mg/dL (7.6-11.0); Carbon Dioxide 20.1 mmol/L (21.0-32.0); Chloride 105 mmol/L (98-108); Cholesterol 167 mg/dL (<=200); Creatinine, Serum 1.11 mg/dL (0.70-1.20); EST Glomerular Filtration Rate 72 (>60); Glucose 99 mg/dL (70-99); High Density Lipoprotein 31 mg/dL; Low Density Lipoprotein Calc. 97 mg/dL; Potassium 4.3 mmol/L (3.3-5.1); Sodium Level 137 mmol/L (133-145); Triglycerides 196 mg/dL; Very Low Density Lipoprotein 39 mg/dL (5-40)
[2024-10-20 13:33] LABS: Microalbumin,Random Urine < 12.0 mg/L (NO RANGE EST.); Microalbumin:Creatinine Ratio UNABLE TO CALCULATE mg/g CRE
--- OUTSIDE RECORDS SUMMARY | 2024-10-20 14:37 | XMS RPT_ITS | CCD ---
Author Organization [facility] Inform ion Partnership [facility] Care Team Providers Care Neighborhood Planner Name Role Phone Dr. Isaiah Light Primary Care Provider Dr. Isaiah Light Referring Provider Nurse, Surgery Attending Provider Unavailable Rogers Guerra Attending Unavailable Isaiah Light Primary Care Unavailable Isaiah Light Referring Unavailable Rogers Guerra Referring Unavailable Isaiah Light Primary Care Unavailable Rogers Guerra Attending Unavailable Isaiah Light Primary Care Unavailable Isaiah Light Attending Unavailable Isaiah Light Referring Unavailable Allergies Allergy Classification Reported Allergen(s) Allergy Type Date of Onset Reaction(s) Facility (9 sources) Tetracyclines; Translations: [Tetracyclines] Propensity to adverse reactions 2 Abd cramps/diarrhea [facility] Medications Current Medications Medication Drug Class(es) Dates Sig (Normalized) Sig (Original) acetaminophen 325 mg / oxyCODONE hydrochloride 5 mg oral tablet (3 sources) Opioid Agonist Start: 08-04-2021 take 1 tablet by mouth every six hours Oxycodone-Acetaminop hen Active 1 TABLET PO EVERY 6 HOURS 14 7 August 04, 2021 12:35pm cholecalciferol 0.125 mg oral tablet (7 sources) Vitamin D Start: 08-04-2021 take 1 tablet by mouth once daily Cholecalciferol (Vitamin D3) (Vitamin D3) 125 mcg (5,000 unit) Tablet Active 125 MCG PO DAILY August 04, 2021 12:00am ciprofloxacin 500 mg oral tablet (3 sources) Quinolone Antimicrobial Start: 08-04-2021 take 1 tablet by mouth twice daily Ciprofloxacin Hcl (Cipro) 500 mg tablet Active 500 MG PO TWICE A DAY 6 August 04, 2021 12:34pm glimepiride 1 mg oral tablet (8 sources) Sulfonylurea Start: 08-04-2021 Glimepiride Active 1 MG DAILY August 04, 2021 12:00am lisinopril 10 mg oral tablet (8 sources) Angiotensin Converting Enzyme Inhibitor Start: 08-04-2021 take 10 mg by mouth once daily Lisinopril Active 10 MG PO DAILY August 04, 2021 12:00am magnesium hydroxide 80 mg/ml oral suspension (4 sources) Start: 08-04-2021 take 400 mg by mouth once daily Magnesium Hydroxide (Milk Of Magnesia) 400 mg/5 mL Suspension Active 400 MG PO DAILY August 04, 2021 3:43am Multivitamin preparation (8 sources) Start: 08-04-2021 take 1 tablet by mouth once daily Multivitamin Active 1 TABLET PO DAILY August 04, 2021 3:43am Start: 08-04-2021 take 1 tablet by nona th once daily Multivitamin Active 1 TABLET PO DAILY August 03, 2021 11:00pm Start: 08-04-2021 take 1 tablet by nona th once daily Multivitamin Active 1 TABLET PO DAILY August 04, 2021 12:00am Problems Problem Classification Problem Date Documented Da te Episodic/Chronic Acute and unspecified renal failure (12 sources) Injury of kidney; Translations: [Acute kidney failure, unspecified] Episodic Calculus of urinary tract (12 sources) Ureteric stone; Translations: [Calculus of ureter] Episodic Diabetes mellitus without complication (1 source) Type 2 diabetes mellitus without complications; Translations: [Type 2 diabetes mellitus without complications] Onset: 01-19-2024 Chronic Other screening for suspected conditions (not mental disorders or infectious disease) (8 sources) Patient encounter status; Translations: [Encounter for screening for malignant neoplasm of colon] 07-15-2021 Episodic Unclassified (1 source) Cough, unspecified; Translations: [Cough, unspecified] Onset: 08-21-2024 Results Test Name Value Interpretation Reference Range Facility Chest PA and Lateralon 06-30 Chest PA and Lateral [facility] Imaging Services [address] [place] [id number] Chest PA and Lateral MR#: [id number] Acct: [id number] Name: CLIFF BARBOZA Rep #: [id number] : 1955 M 68 From: Omer Carranza MD PCP: Dr. Isaiah Light MD Status: REG CLI Study: Chest PA and Lateral Date of Exam: 06/30/24 Exam# [id number] Ordering Dr: Rogers White PA EXAM: XR Chest, 2 Views CLINICAL INDICATION: TECHNIQUE: Frontal and lateral views of the chest. COMPARISON: No relevant prior studies available. FINDINGS: LUNGS AND PLEURAL SPACES: Unremarkable. No consolidation. No pneumothorax. HEART: Unremarkable. No cardiomegaly. MEDIASTINUM: Unremarkable. Normal mediastinal contour. BONES/JOINTS: Unremarkable. No acute fracture. RAD/Chest PA and Lateral IMPRESSION: No acute cardiopulmonary process. Reading Location: [facility] CC: TRES Aldana; Dr. Isaiah Light MD Claims Service Adjustor: Signed Normal [facility] Urgent Care Visit Reporton 0 06-30-2024 Urgent Care Visit Report [facility] [address], [address] [place] [address] OFFICE VISIT Date of Service: 06/30/24 MR#: [id number] Acct: [id number] Name: CLIFF BARBOZA Rep #: [id number] : 1955 Provider: TRES Aldana Age/Sex: 68/M Location: [facility] Status: Signed Intake Vital Signs 04/18/23 08:18 06/30/24 09:47 Height 5 ft 9 in BP 122/62 H Blood Pressure Location Lt brachial Position Sitting Respiration 17 Pulse 94 Pulse Source NIBP Temp 97.7 F L Temp Source Oral Pulse Oximetry (%) 98 Oxygen Delivery Method room air Intake Visit Reasons: CHEST CONGESTION Chief Complaint: congested, fatigue, cough Senior Copywriter Required: No Is patient in pain?: No Allergies Tetracyclines Adverse Reaction (Severe, Verified 06/30/24 09:47) Abd cramps/diarrhea Medications ???Medication ???Instructions ???Recorded ???Confirmed ???Type cholecalciferol (vitamin D3) 125 125 mcg PO DAILY 08/04/21 04/18/23 History mcg (5,000 unit) tablet (Vitamin D3) glimepiride 1 mg tablet 1 mg DAILY 08/04/21 04/18/23 Histo ry lisinopril 10 mg tablet 10 mg PO DAILY 08/04/21 04/18/23 H istory multivitamin 1 tab PO DAILY 08/04/21 04/18/23 H istory meloxicam 15 mg tablet mg PO 04/18/23 04/18/23 History azithromycin 250 mg tablet See Rx Instructions PO .COMPLEX #6 06/30/24 06/30/24 Rx tabs brompheniramine-pseud oephedrine-DM 7.5 ml PO Q4-6H PRN cold symptom s 06/30/24 06/30/24 Rx 2 mg-30 mg-10 mg/5 mL oral syrup #100 mL (Bromfed DM) Have you fallen in the past year?: No Nurse's Note: congested, fatigue, cough x 24 hours. had flu earlier in the week, concerned his lungs are crackling. denies fever, CRISTAL THOMAS. 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 Patient states he is sure that he has had influenza as his grandson and multiple other family subletting tested positive for influenza A. Patient states that he has had a worsening cough for the past 2 days. He states being concern for pneumonia. No nausea, vomiting or diarrhea. No hemoptysis, shortness of breath or difficulty breathing. No loss of taste or smell. No other associated symptoms or alleviating/aggravati ng factors. ROS Const Constitutional: No other (6 system ROS completed with pertinent findings in the HPI otherwise normal.) Exam Const General: cooperative and well developed HENPR Head: normal to inspection and atraumatic Ears: hearing grossly normal bilaterally Nose: nasal discharge clear Face and sinus: normal facial exam Mouth: oral mucosae normal Throat: abnormal tonsil bilaterally hypertrophy 1+ Resp Effort Inspection: normal respiratory effort and no audible wheezes Auscultation: Bilateral: Crackles Cardio Palpation: normal PMI Rate: regular rate Rhythm: regular rhythm Neuro General: patient alert and CN's II-XI intact bilaterally Psych Appearance: grossly normal Mental Status: mental status grossly normal Coding Level of Care Code Off vis,est,level 4 Diagnoses Acute bronchitis J20.9 Assessment and Plan Assessment and Plan (1) Acute bronchitis: Status: Acute Plan: Chest x-ray read and interpreted by myself find no acute cardiopulmonary disease, awaiting radiology interpretation at time of patient discharge. Azithromycin and Bromfed as prescribed today. Encouraged to get plenty of rest, drink lots of clear liquids, and use Tylenol or Ibuprofen (unless contraindicated) for fever and comfort. Patient also educated on other symptomatic management techniques. To be seen in 7-10 days if no improvement; sooner if worsening of symptoms. Patient advised of potential red flags and when appropriate to report to the ED. Patient verbalized understanding and agreement with all the above. Orders: Orders Chest PA and Lateral Today R05.9 - Cough, unspecified Medications: New azithromycin take 500 mg today (day 1), then 250 mg for 4 days (days 2-5) PO 6 tabs 0RF brompheniramine-pseud oeph-DM 2-30-10 mg/5 mL (Bromfed DM) 7.5 mL PO Q4-6H PRN 100 mL 0RF cold symptoms (more content not included)... Normal [facility] Basic Metabolic Profile (BMP )on 12-22-2023 BUN/CRE 18.2 RATIO Normal 10-20 [facility] Comment on above: Performed By: #### L 500.2500 #### [facility] [address] [place], [address] CA,Total 9.4 mg/dL Normal 8.5-10.1 [facility] Comment on above: Performed By: #### L 500.2500 #### [facility] [address] [place], [address] Chloride [Moles/Vol] 106 mmol/L Normal 98-107 [facility] Comment on above: Performed By: #### L 500.2500 #### [facility] [address] [place], [address] CO2 [Moles/Vol] 24.0 mmol/L Normal 21.0-32.0 [facility] Comment on above: Performed By: #### L 500.2500 #### [facility] [address] [place], [address] Creatinine [Mass/Vol] 1.10 mg/dL Normal 0.70-1.30 [facility] Comment on above: Result Comment: The validity of the calculated GFR GFRAA in patients over 70 years has not been determined. Clinical correlation is essential. Performed By: #### L 500.2500 #### [facility] [address] [place], [address] EST GFR - AA 86 mL/min Normal >60 [facility] Comment on above: Result Comment: Afri can Macanese GFR Calc Performed By: #### L 500.2500 #### [facility] [address] [place], [address] GAP 7 Normal 5-15 [facility] Comment on above: Performed By: #### L 500.2500 #### [facility] [address] [place], [address] GFR/1.73 sq M.predicted among non-blacks MDRD (S/P/Bld) [Vol rate/Area] 71 mL/min/{1.73_m2} Normal >60 [facility] Comment on above: Result Comment: Non- GFR Calc Performed By: #### L 500.2500 #### [facility] [address] [place], [address] Glucose [Mass/Vol] 203 mg/dL High 74-106 [facility] Comment on above: Result Comment: Gluc ose result greater than or equal to 200 mg/dL suggests DIABETES MELLITUS per A.D.A. criteria. Performed By: #### L 500.2500 #### [facility] [address] [place], [address] Potassium [Moles/Vol] 4.1 mmol/L Normal 3.5-5.1 [facility] Comment on above: Performed By: #### L 500.2500 #### [facility] [address] [place], [address] Sodium [Moles/Vol] 137 mmol/L Normal 136-145 [facility] Comment on above: Performed By: #### L 500.2500 #### [facility] [address] [place], [address] Urea nitrogen [Mass/Vol] 20 mg/dL High 7-18 [facility] Comment on above: Performed By: #### L 500.2500 #### [facility] [address] [place], [address] Knee 4 or More Viewson 12-21 Knee 4 or More Views [facility] Services [address] [place] [address] Knee 4 or More Views MR#: [id number] Acct: [id number] Name: CLIFF BARBOZA Rep #: [id number] : 1955 M 68 From: Michele Hyman MD PCP: Dr. Isaiah Light MD Status: [facility] Study: Knee 4 or More Views Date of Exam: 12/22/23 Exam# [id number] Ordering Dr: Isaiah Light MD [id number] STUDY: X-RAY - LEFT KNEE REASON FOR EXAM: Male, 68 years old. Pain in both knees. TECHNIQUE: 4 view(s) of the knee. COMPARISON: March 11, 2018 FINDINGS: Stable osteopenia. Superior patellar spur. Slight progression of medial compartmental arthrosis with now small osteophytes. Mild arthrosis of the lateral femorotibial compartment with small osteophytes. Mild arthrosis of the patellofemoral compartment. Small joint effusion. Otherwise, normal soft tissues. RAD/Knee 4 or More Views IMPRESSION: Osteopenia, patellar spur and tricompartmental arthrosis most marked medially. Electronically Signed: Michele Hyman MD at 15:39 EDT , CC: Dr. Isaiah Light MD Claims Service Adjustor: Signed Normal [facility] Knee 4 or More Views [facility] Imaging Services [address] [place], [place] [address] [place], [place] [id number] Knee 4 or More Views MR#: [id number] Acct: [id number] Name: CLIFF BARBOZA Rep #: [id number] : 1955 68 From: Michele Hyman MD PCP: Dr. Isaiah Light MD Status: [facility] Study: Knee 4 or More Views Date of Exam: 12/22/23 Exam# [id number] Ordering Dr: Isaiah Light MD [id number] STUDY: X-RAY - RIGHT KNEE REASON FOR EXAM: Male, 68 years old. Pain in both knees. TECHNIQUE: 4 view(s) of the knee. COMPARISON: None. FINDINGS: Osteopenia. [id number] medial compartmental arthrosis. Mild lateral compartmental arthrosis. Slight lateral tilt of the patella with mild arthrosis of the patellofemoral compartment. Small joint effusion. RAD/Knee 4 or More Views IMPRESSION: Osteopenia with tricompartmental arthrosis and small joint effusion. Electronically Signed: Michele Hyman MD at 15:37 EDT , CC: Dr. Isaiah Light MD Claims Service Adjustor: Signed Normal [facility] No Panel InformationOrdered By: Catarino Wilkinson on 03-05-2023 Prostate Specific Antigen Screen 1.12 ng/mL 0.00-4.00 [facility] Comment on above: This test was perfor med using the TPSA assay method for theFramebench chemistry system. Values obtained with differentassay methods cannot be used interchangably.When changing PSA assays in the course of monitoring apatient, additional sequential testing should be carriedout to confirm baseline values. Basophil percentageOrdered B y: Isaiah Light on 01-15-2023 Basophil percentage Not Reportable [facility] Chloride [Moles/Vol] 109 mmol/L 98-107 [facility] Cholesterol [Mass/Vol] 143 mg/dL <200 [facility] Comment on above: <200 mg/dL Desirable 200-240 mg/dL Borderline >240 mg/dL High Risk Glucose [Mass/Vol] 131 mg/dL 74-106 [facility] Comment on above: Fasting Glucose resu lt greater than or equal to 126 mg/dL suggests DIABETES MELLITUS per A.D.A. criteria. Potassium [Moles/Vol] 4.4 mmol/L 3.5-5.1 [facility] Sodium [Moles/Vol] 137 mmol/L 136-145 [facility] Triglyceride [Mass/Vol] 195 mg/dL <199 [facility] Comment on above: The drugs N-Acetylcy steine and Metamizole may falsely depress this assay.Serum Triglycerides Reference Interval Normal <150 mg/dL Borderline high 150 - 199 mg/dL High 200 - 499 mg/dL Very High > or = 500 mg/dL Erythrocyte sedimentation ra teOrdered By: Isaiah Light on 01-15-2023 ESR (Bld) [Velocity] 3 mm/h 0- [facility] - Chemistry and C hemistry - challengeOrdered By: Isaiah Light on 01-15-2023 CO2 [Moles/Vol] 23.0 mmol/L 21.0-32.0 [facility] Urea nitrogen/Creatinine [Mass ratio] 20.5 mg/mg 03-05 [facility] No Panel InformationOrdered By: Isaiah Light on 01-15-2023 Anti-Nuclear Antibody Screen Negative Negative [facility] Comment on above: Performed at: [employer] [address] [id number] Director: Brandon Myers PhD, Phone: [phone] [employer] Antibody Not Reportable [facility] Estimated GFR (MDRD) Amer 80 mL/min >60 [facility] Comment on above: GFR Calc Estimated GFR (MDRD) Non-Af Amer 66 mL/min >60 [facility] Comment on above: Non- GFR Calc INVENTORY CONTROL CLERK Antibody Not Reportable [facility] Serum DNA double strand anti body assay (units/volume)Ordered By: Isaiah Light on 01-15-2023 DNA double strand Ab Qn (S) Not Reportable [facility] Serum Elvira-1 antibody assay (u nits/volume)Ordered By: Isaiah Light on 01-15-2023 Elvira-1 extractable nuclear Ab Qn (S) Not Reportable [facility] Serum Scl-70 extractable nuc lear antibody assay (units/volume)Ordered By: Isaiah Light on 01-15-2023 SCL-70 extractable nuclear Ab Qn (S) Not Reportable [facility] Serum Miranda extractable nucl ear antibody detectionOrdered By: Isaiah Light on 01-15-2023 Miranda extractable nuclear Ab Ql (S) Not Reportable [facility] Serum or plasma C reactive p rotein measurement (mass/volume)Ordered By: Isaiah Light on 01-15-2023 CRP [Mass/Vol] mg/L 0.0-3.0 [facility] Comment on above: C-Reactive Protein ( CRP) provides useful information for thediagnosis, therapy and monitoring of inflammatory processesand associated diseases. For the evaluation of Relative Riskfor Cardiovascular Disease, a High Sensitivity CRP (HSCRP)should be ordered. Serum or plasma calcium nolberto urement (mass/volume)Ordered By: Isaiah Light on 01-15-2023 Calcium [Mass/Vol] 8.7 mg/dL 8.5-10.1 [facility] Serum or plasma cholesterol in HDL measurement (mass/volume)Ordered By: Isaiah Light on 01-15-2023 Cholesterol in HDL [Mass/Vol] 30 mg/dL >40 [facility] Comment on above: The drugs N-Acetylcy steine and Metamizole may falsely depress this assay. Reference Range HDL <40 mg/dL Low HDL Cholesterol HDL >or= 60 mg/dL High HDL Cholesterol Serum or plasma cholesterol in VLDL measurement (mass/volume)Ordered By: Isaiah Light on 01-15-2023 Cholesterol in VLDL [Mass/Vol] 39 mg/dL 5-40 [facility] Serum or plasma creatinine m easurement (mass/volume)Ordered By: Isaiah Light on 01-15-2023 Creatinine [Mass/Vol] 1.17 mg/dL 0.70-1.30 [facility] Comment on above: The validity of the calculated GFR & GFRAA in patients over 70 years has not been determined. Clinical correlation is essential. Serum or plasma low density lipoprotein (LDL) cholesterol measurement (mass/volume)Ordered By: Isaiah Light on 01-15-2023 Cholesterol in LDL [Mass/Vol] 74 mg/dL 0-130 [facility] Serum or plasma urea nitroge n measurement (mass/volume)Ordered By: Isaiah Light on 01-15-2023 Urea nitrogen [Mass/Vol] 24 mg/dL 7-18 [facility] Serum rheumatoid factor dete ctionOrdered By: Isaiah Light on 01-15-2023 Rheumatoid factor Ql (S) < 10.0 IU/mL <15 [facility] Thin prep Papanicolaou smear with manual screeningOrdered By: Isaiah Light on 01-15-2023 Thin prep Papanicolaou smear with manual screening 5 5-15 [facility] Whole blood hemoglobin A1c/t otal hemoglobin ratio (mass fraction)Ordered By: Isaiah Light on 01-15-2023 HbA1c (Bld) [Mass fraction] 6.5 % 3.8-5.6 [facility] Comment on above: Normal < 5.7 % Predi abetic 5.7 - 6.4 % Diabetic >or= 6.5 % Please note range changes. Basophil percentageon 2021 Chloride [Moles/Vol] 105 mmol/L 98-107 os [facility] Work Phone: Cholesterol [Mass/Vol] 142 mg/dL <200 ramon [facility] Work Phone: Comment on above: <200 mg/dL Desirable 200-240 mg/dL Borderline >240 mg/dL High Risk Glucose [Mass/Vol] 99 mg/dL 74-106 [facility] Work Phone: Potassium [Moles/Vol] 4.3 mmol/L 3.5-5.1 [facility] Work Phone: Sodium [Moles/Vol] 138 mmol/L 136-145 [facility] Work Phone: Triglyceride [Mass/Vol] 121 mg/dL <[address] [facility] Work Phone: Comment on above: The drugs N-Acetylcy steine and Metamizole may falsely depress this assay.Serum Triglycerides Reference Interval Normal <150 mg/dL Borderline high 150 - 199 mg/dL High 200 - 499 mg/dL Very High > or = 500 mg/dL Laboratory - Chemistry and C hemistry - challengeon 03-02-2022 CO2 [Moles/Vol] 24.0 mmol/L 21.0-32.0 [facility] Work Phone: Urea nitrogen/Creatinine [Mass ratio] 21.0 mg/mg - [facility] Work Phone: No Panel Informationon 03-02 Estimated GFR (MDRD) Amer 91 mL/min >60 [facility] Work Phone: Comment on above: GFR Calc Estimated GFR (MDRD) Non-Af Amer 75 mL/min >60 [facility] Work Phone: Comment on above: Non- GFR Calc Serum or plasma calcium nolberto urement (mass/volume)on 03-02-2022 Calcium [Mass/Vol] 9.1 mg/dL 8.5-10.1 [facility] Work Phone: Serum or plasma cholesterol in HDL measurement (mass/volume)on 03-02-2022 Cholesterol in HDL [Mass/Vol] 32 mg/dL >40 [facility] Work Phone: Comment on above: The drugs N-Acetylcy steine and Metamizole may falsely depress this assay. Reference Range HDL <40 mg/dL Low HDL Cholesterol HDL >or= 60 mg/dL High HDL Cholesterol Serum or plasma cholesterol in VLDL measurement (mass/volume)on 03-02-2022 Cholesterol in VLDL [Mass/Vol] 24 mg/dL 5-40 [facility] Work Phone: Serum or plasma creatinine m easurement (mass/volume)on 03-02-2022 Creatinine [Mass/Vol] 1.05 mg/dL 0.70-1.30 [facility] Work Phone: Comment on above: The validity of the calculated GFR & GFRAA in patients over 70 years has not been determined. Clinical correlation is essential. Serum or plasma low density lipoprotein (LDL) cholesterol measurement (mass/volume)on 03-02-2022 Cholesterol in LDL [Mass/Vol] 86 mg/dL 0-130 [facility] Work Phone: Serum or plasma urea nitroge n measurement (mass/volume)on 03-02-2022 Urea nitrogen [Mass/Vol] 22 mg/dL 7-18 [facility] Work Phone: Thin prep Papanicolaou smear with manual screeningon 03-02-2022 Thin prep Papanicolaou smear with manual screening 9 5-15 [facility] Work Phone: Absolute lymphocyte counton 08-08-2021 Lymphocytes Auto (Unsp spec) [#/Vol] 1.90 10*3/uL 0.83-4.51 [facility] Work Phone: Basophil percentageon 2021 Basophils/100 WBC (Bld) 0.7 % 0-[address] [facility] Work Phone: Chloride [Moles/Vol] 108 mmol/L 98-107 [facility] Work Phone: Eosinophils/100 WBC (Bld) 2.4 % 0-5 [facility] Work Phone: Glucose [Mass/Vol] 86 mg/dL 74-106 [facility] Work [facility]: Neutrophils (Bld) [#/Vol] 6.1 10*3/uL 2.0-7.7 [facility] Work Phone: Neutrophils/100 WBC (Bld) 66.8 % 47-70 [facility] Work Phone: Potassium [Moles/Vol] 3.9 mmol/L 3.5-5.1 [facility] Work Phone: Sodium [Moles/Vol] 138 mmol/L 136-145 [facility] Work Phone: WBC (Bld) [#/Vol] 9.2 10*3/uL 4.4-11.0 [facility] Work Phone: Blood erythrocytes count (nu mber/volume)on 08-08-2021 RBC (Bld) [#/Vol] 5.09 10*6/uL 4.6-6.2 [facility] Work Phone: Blood hemoglobin measurement (mass/volume)on 08-08-2021 Hemoglobin (Bld) [Mass/Vol] 14.0 g/dL 13.0-16.5 [facility] Work Phone: Blood lymphocytes/100 leukoc yteson 08-08-2021 Lymphocytes/100 WBC (Bld) 20.7 % 19-41 [facility] Work Phone: Blood monocytes/100 leukocyt eson 08-08-2021 Monocytes/100 W[facility] (Bld) 8.6 % 0-[address] [facility] Work Phone: Blood platelet mean volumeon 08-08-2021 Platelet mean volume (Bld) [Entitic vol] 9.3 fL 6.2-12.0 [facility] Work Phone: Culture, urineon 08-08-2021 Bacteria identified Cx Nom (U) Culture exhibits no growth. [facility] Work Phone: Determination of erythrocyte mean corpuscular volume (MCV)on 03-25-2022 MCV (RBC) [Entitic vol] 84.9 fL 80-[address] [facility] Work Phone: Comment on above: Delta: 79.4 on 08/04 Hematocrit Auto (Bld) [Volum e fraction]on 08-08-2021 Hematocrit (Bld) [Volume fraction] 43.2 % 40-54 [facility] Work Phone: Laboratory - Chemistry and C hemistry - challengeon 08-08-2021 CO2 [Moles/Vol] 26.0 mmol/L 21.0-32.0 [facility] Work Phone: Urea nitrogen/Creatinine [Mass ratio] 15.9 mg/mg 10-20 [facility] Work Phone: Laboratory - Hematology and Cell countson 08-08-2021 Erythrocyte distribution width (RBC) [Entitic vol] 40.8 fL 35.1-43.9 [facility] Work Phone: Erythrocyte distribution width (RBC) [Ratio] 13.1 % 11.6-14.6 [facility] Work Phone: Immature granulocytes/100 WBC (Bld) 0.800 % 0.0-0.9 [facility] Work Phone: Comment on above: IG% - Immature Granu locytes (promyelocytes, myelocytes and metamyelocytes) > 1% indicates that a LEFT SHIFT is Present. MCH (RBC) [Entitic mass] 27.5 pg 27.0-32.0 [facility] Work Phone: Nucleated RBC/100 WBC (Bld) [Ratio] 0 % 0-5 [facility] Work Phone: MCHC Auto (RBC) [Mass/Vol]on 08-08-2021 MCHC (RBC) [Mass/Vol] 32.4 g/dL 32-36 [facility] Work [facility]: Comment on above: Delta: 34.8 on 08/04 No Panel Informationon 08-08 Estimated GFR (MDRD) Amer 89 mL/min >60 [facility] Work Phone: Comment on above: GFR Calc Estimated GFR (MDRD) Non-Af Amer 74 mL/min >60 [facility] Work Phone: Comment on above: Non- GFR Calc Platelets bldon 08-08-2021 Platelets (Bld) [#/Vol] 243 10*3/uL 150-450 [facility] Work Phone: Serum or plasma calcium nolberto urement (mass/volume)on 08-08-2021 Calcium [Mass/Vol] 9.1 mg/dL 8.5-10.1 [facility] Work Phone: Serum or plasma creatinine m easurement (mass/volume)on 08-08-2021 Creatinine [Mass/Vol] 1.07 mg/dL 0.70-1.30 [facility] Work Phone: Comment on above: The validity of the calculated GFR & GFRAA in patients over 70 years has not been determined. Clinical correlation is essential. Serum or plasma urea nitroge n measurement (mass/volume)on 08-08-2021 Urea nitrogen [Mass/Vol] 17 mg/dL 7-18 [facility] Work Phone: Thin prep Papanicolaou smear with manual screeningon 08-08-2021 Thin prep Papanicolaou smear with manual screening 4 5-15 [facility] Work Phone: Absolute lymphocyte counton 08-04-2021 Lymphocytes Auto (Unsp spec) [#/Vol] 1.20 10*3/uL 0.83-4.51 [facility] Work Phone: Basophil percentageon 2021 Basophil percentage 0 SEEN /hpf [facility] Work Phone: Lactate [Moles/Vol] 1.1 mmol/L 0.4-2.0 [facility] Work [facility]: Basophils/100 WBC (Bld) 0.3 % 0-[address] [facility] Work Phone: Bilirubin [Mass/Vol] 1.30 mg/dL 0.20-1.00 [facility] Work Phone: Comment on above: For patients on eltr ombopag therapy, use of Dimension [place] TBIL is not recommended. Chloride [Moles/Vol] 102 mmol/L 98-107 [facility] Work Phone: Eosinophils/100 WBC (Bld) 0.5 % 0-5 [facility] Work Phone: Glucose [Mass/Vol] 128 mg/dL 74-106 [facility] Work Phone: Comment on above: Fasting Glucose resu lt greater than or equal to 126 mg/dL suggests DIABETES MELLITUS per A.D.A. criteria. Neutrophils (Bld) [#/Vol] 11.3 10*3/uL 2.0-7.7 [facility] Work Phone: Neutrophils/100 WBC (Bld) 80.0 % 47-70 [facility] Work Phone: Potassium [Moles/Vol] 4.1 mmol/L 3.5-5.1 [facility] Work Phone: Protein [Mass/Vol] 7.9 g/dL 6.4-8.2 [facility] Work Phone: Sodium [Moles/Vol] 134 mmol/L 136-145 [facility] Work Phone: WBC (Bld) [#/Vol] 14.1 10*3/uL 4.4-11.0 [facility] Work Phone: Bilirubin Test strip Ql (U)o n 08-04-2021 Bilirubin Ql (U) Negative Negative [facility] Work Phone: Blood erythrocytes count (nu mber/volume)on 08-04-2021 RBC (Bld) [#/Vol] 5.33 10*6/uL 4.6-6.2 [facility] Work Phone: Blood hemoglobin measurement (mass/volume)on 08-04-2021 Hemoglobin (Bld) [Mass/Vol] 14.7 g/dL 13.0-16.5 [facility] Work Phone: Blood lymphocytes/100 leukoc yteson 08-04-2021 Lymphocytes/100 WBC (Bld) 8.5 % 19-41 [facility] Work Phone: Blood monocytes/100 leukocyt eson 08-04-2021 Monocytes/100 WBC (Bld) 10.1 % 0-[address] [facility] Work Phone: Blood platelet mean volumeon 08-04-2021 Platelet mean volume (Bld) [Entitic vol] 9.2 fL 6.2-12.0 [facility] Work Phone: Determination of erythrocyte mean corpuscular volume (MCV)on 08-04-2021 MCV (RBC) [Entitic vol] 79.4 fL 80-[address] [facility] Work Phone: Hematocrit Auto (Bld) [Volum e fraction]on 08-04-2021 Hematocrit (Bld) [Volume fraction] 42.3 % 40-54 [facility] Work Phone: Ketones Test strip Ql (U)on 08-04-2021 Ketones Ql (U) 50 mg/dl Negative [facility] Work Phone: Laboratory - Chemistry and C hemistry - challengeon 08-04-2021 ALP [Catalytic activity/Vol] 62 U/L 45-117 [facility] Work Phone: ALT [Catalytic activity/Vol] 22 U/L 16-61 [facility] Work Phone: CO2 [Moles/Vol] 26.0 mmol/L 21.0-32.0 [facility] Work Phone: Globulin (S) [Mass/Vol] 3.8 g/dL 2.2-4.[address] [facility] Work Phone: Urea nitrogen/Creatinine [Mass ratio] 15.9 mg/mg 10-20 [facility] Work Phone: Laboratory - Hematology and Cell countson 08-04-2021 Erythrocyte distribution width (RBC) [Entitic vol] 37.3 fL 35.1-43.9 [facility] Work Phone: Erythrocyte distribution width (RBC) [Ratio] 13.2 % 11.6-14.6 [facility] Work Phone: Immature granulocytes/100 WBC (Bld) 0.600 % 0.0-0.9 [facility] Work Phone: Comment on above: IG% - Immature Granu locytes (promyelocytes, myelocytes and metamyelocytes) > 1% indicates that a LEFT SHIFT is Present. MCH (RBC) [Entitic mass] 27.6 pg 27.0-32.0 [facility] Work Phone: Nucleated RBC/100 WBC (Bld) [Ratio] 0 % 0-5 [facility] Work Phone: MCHC Auto (RBC) [Mass/Vol]on 08-04-2021 MCHC (RBC) [Mass/Vol] 34.8 g/dL 32-36 [facility] Work Phone: Mucus LM Ql (Urine sed)on Mucus Ql (Urine sed) 0 SEEN /hpf [facility] Work Phone: Nitrite Test strip Ql (U)on 08-04-2021 Nitrite Ql (U) Negative Negative [facility] Work Phone: No Panel Informationon 08-04 Estimated Creatinine Clearance Calc 47.53 ml/min [facility] Work Phone: Estimated GFR (MDRD) Amer 57 mL/min >60 [facility] Work Phone: Comment on above: GFR Calc Estimated GFR (MDRD) Non-Af Amer 47 mL/min >60 [facility] Work Phone: Comment on above: Non- GFR Calc Platelets bldon 08-04-2021 Platelets (Bld) [#/Vol] 197 10*3/uL 150-450 [facility] Work Phone: Protein Test strip Ql (U)on 08-04-2021 Protein Ql (U) 15 mg/dl Negative [facility] Work Phone: Serum or plasma albumin nolberto urement (mass/volume)on 08-04-2021 Albumin [Mass/Vol] 4.1 g/dL 3.2-5.0 [facility] Work Phone: Serum or plasma albumin/glob ulin mass ratioon 08-04-2021 Albumin/Globulin [Mass ratio] 1.1 {ratio} 0.9-2.4 [facility] Work Phone: Serum or plasma calcium nolberto urement (mass/volume)on 08-04-2021 Calcium [Mass/Vol] 8.8 mg/dL 8.5-10.1 [facility] Work Phone: Serum or plasma creatinine m easurement (mass/volume)on 08-04-2021 Creatinine [Mass/Vol] 1.57 mg/dL 0.70-1.30 [facility] Work Phone: Comment on above: The validity of the calculated GFR & GFRAA in patients over 70 years has not been determined. Clinical correlation is essential. Serum or plasma urea nitroge n measurement (mass/volume)on 08-04-2021 Urea nitrogen [Mass/Vol] 25 mg/dL 7-18 [facility] Work Phone: Squamous epithelial cells de tection in urine sediment by light microscopyon 08-04-2021 Epithelial cells.squamous LM Ql (Urine sed) 0 SEEN /hpf [facility] Work Phone: Thin prep Papanicolaou smear with manual screeningon 08-04-2021 Thin prep Papanicolaou smear with manual screening 13 U/L 15-37 [facility] Work Phone: Thin prep Papanicolaou smear with manual screening 6 5-15 [facility] Work Phone: Urine blood detectionon 07-16 RBC Ql (U) 150 /ul Negative [facility] Work Phone: RBC Ql (U) 0-5 SEEN /hpf [facility] Work Phone: Urine clarityon 08-04-2021 Clarity (U) Clear Clear [facility] Work Phone: Urine color determinationon 08-04-2021 Color (U) Yellow Yellow [facility] Work Phone: Urine glucose detectionon Glucose Ql (U) Normal mg/dl Normal [facility] Work Phone: Urine leukocyte esterase det ection by dipstickon 08-04-2021 Leukocyte esterase Test strip Ql (U) Negative Negative [facility] Work Phone: Urine pHon 08-04-2021 pH (U) 5.0 [pH] [facility] Work Phone: Urine sediment bacteria coun t by microscopy (number/high power field)on 08-04-2021 Bacteria LM.HPF (Urine sed) [#/Area] 0 /[HPF] None Seen [facility] Work Phone: Urine specific gravity measu rementon 08-04-2021 Specific gravity (U) [Rel density] 1.015 [facility] Work Phone: Urobilinogen Auto test strip Ql (U)on 08-04-2021 Urobilinogen Ql (U) Normal mg/dl Normal [facility] ster [facility] Work Phone: Basophil percentageon 2021 Chloride [Moles/Vol] 106 mmol/L 98-107 [facility] [address] [facility] Work Phone: Cholesterol [Mass/Vol] 153 mg/dL <[facility] Work Phone: Comment on above: <200 mg/dL Desirable 200-240 mg/dL Borderline >240 mg/dL High Risk Glucose [Mass/Vol] 108 mg/dL 74-106 [facility] Work Phone: Comment on above: Fasting Glucose resu lt from 100 to 125 mg/dL suggests IMPAIRED HOMEOSTASIS per A.D.A. criteria. Potassium [Moles/Vol] 4.4 mmol/L 3.5-5.1 [facility] Work Phone: Sodium [Moles/Vol] 139 mmol/L 136-145 [facility] Work Phone: Triglyceride [Mass/Vol] 144 mg/dL [facility] Work Phone: Comment on above: The drugs N-Acetylcy steine and Metamizole may falsely depress this assay.Serum Triglycerides Reference Interval Normal <150 mg/dL Borderline high 150 - 199 mg/dL High 200 - 499 mg/dL Very High > or = 500 mg/dL Laboratory - Chemistry and C hemistry - challengeon 07-02-2021 CO2 [Moles/Vol] 26.0 mmol/L 21.0-32.0 [facility] Work Phone: Urea nitrogen/Creatinine [Mass ratio] 21.2 mg/mg 10-20 [facility] Work Phone: No Panel Informationon 07-02 Estimated GFR (MDRD) Amer 134 mL/min >60 [facility] Work Phone: Comment on above: GFR Calc Estimated GFR (MDRD) Non-Af Amer 110 mL/min >60 [facility] Work Phone: Comment on above: Non- GFR Calc Urine Microalbumin/Creatinine Ratio 24.9 mg/g CRE <30 [facility] Work Phone: Serum or plasma calcium nolberto urement (mass/volume)on 07-02-2021 Calcium [Mass/Vol] 9.2 mg/dL 8.5-10.1 [facility] Work Phone: Serum or plasma cholesterol in HDL measurement (mass/volume)on 07-02-2021 Cholesterol in HDL [Mass/Vol] 32 mg/dL [facility] Work Phone: Comment on above: The drugs N-Acetylcy steine and Metamizole may falsely depress this assay. Reference Range HDL <40 mg/dL Low HDL Cholesterol HDL >or= 60 mg/dL High HDL Cholesterol Serum or plasma cholesterol in VLDL measurement (mass/volume)on 07-02-2021 Cholesterol in VLDL [Mass/Vol] 29 mg/dL 5-40 [facility] Work Phone: Serum or plasma creatinine m easurement (mass/volume)on 07-02-2021 Creatinine [Mass/Vol] 0.76 mg/dL 0.70-1.30 [facility] Work Phone: Comment on above: The validity of the calculated GFR & GFRAA in patients over 70 years has not been determined. Clinical correlation is essential. Serum or plasma low density lipoprotein (LDL) cholesterol measurement (mass/volume)on 07-02-2021 Cholesterol in LDL [Mass/Vol] 92 mg/dL 0-130 [facility] Work Phone: Serum or plasma urea nitroge n measurement (mass/volume)on 07-02-2021 Urea nitrogen [Mass/Vol] 16 mg/dL 7-18 [facility] Work Phone: Thin prep Papanicolaou smear with manual screeningon 07-02-2021 Thin prep Papanicolaou smear with manual screening 7 5-15 [facility] Work Phone: Thin prep Papanicolaou smear with manual screening 28.1 mg/L NO RANGE EST. [facility] Work Phone: Urine creatinine measurement (mass/volume)on 07-02-2021 Creatinine (U) [Mass/Vol] 113.00 mg/dL NO RANGE EST. [facility] Work Phone: Whole blood hemoglobin A1c/t otal hemoglobin ratio (mass fraction)on 07-02-2021 HbA1c (Bld) [Mass fraction] 6.3 % 3.8-5.6 [facility] Work Phone: Comment on above: Normal < 5.7 % Predi abetic 5.7 - 6.4 % Diabetic >or= 6.5 % Please note range changes. PROGRESSon 05-08-2019 PROGRESS HNO ID: [id number] Author: Malcolm (Beam Machine Operator)(Hist) Richie Service: ? Author Type: Nurse Practitioner Type: Progress Notes Filed: 05/08/2019 6:03 PM Note Text: [facility] [place] [address] FIRST CARE REPORT Patient: CLIFF BARBOZA,-JERRILUIZ Moses C.N.P. [id number] M Status: REG POV FC Date of Service: 05/08/19 Report Date AND Time: 05/08/19 1755 HPI History Of Present Illness Chief Complaint Upper Resp Congestion (FC) CC History Pt is a reliable 63 year old male here today for a 5-6 day history of nasal congestion, cough, and sinus pressure. OTC medications with little relief. Nothing makes it better or worse. No other concerns at this time. Vital Signs Vital Signs First Last Result Date Time Result Date Time Pulse Ox 96 05/08 1734 96 05/08 1734 B/P 129/79 05/08 1734 129/79 05/08 173 Temp 97.9 05/08 173 97.9 05/08 173 Pulse 81 05/08 1734 81 05/08 1734 Resp 18 05/08 1734 18 05/08 173 Medications Reported Medications Lisinopril* (Zestril*) Discontinued Reported Medications Lisinopril* (Zestril*) . (No Home Medications) Allergies Coded Allergies: tetracycline (UNK 05/08/19) Patient Health History Medical Problems Hypertension Left otitis media Viral URI Surgical Problems No significant past surgical history Social History Problems Non-smoker OARRS Accessed and Reviewed NO Advanced Directives Advanced Directives N/A Adv Dir Info Given No Review of Systems General Fatigue. Denies: Body Aches, Fever, Chills. Head Sinus Headache. Ear Fullness. Denies: Ear Pain. Nose Nasal Congestion. Throat Denies: Sore Throat, Hoarseness. Neck Denies: Neck Pain, Soreness/Glands swollen. Heart/Cardiovascular Denies: Chest Pain. Respiratory Cough. Denies: Dyspnea, Wheezing. Physical Examination General Alert, Oriented X3, Non-toxic Appearance, Cooperative Skin [place], Warm, and Dry, Well Hydrated Head Normocephalic, Atraumatic Ears Normal Tympanic Membranes (right), TM erthemia/red bulging (left) Nose Nasal Discharge, nasal mucosa erythematous and edematous. maxillary and frontal sinus pressure with palpation Mouth Mouth pink/wet Throat Uvula Midline Non-Edema, Unremarkable Neck Neck Supple, No Cervical Adenopathy Heart/Cardiovascular Regular Rate and Rhythm, Normal S-1, S-2 Respiratory Lungs Are Clear, Pt Speaking Full Sentence, No Wheezes Impression And Plan Discharge Instructions Take Meds As Directed, Increase Liquids, Warm Liquids (tea/soup), Honey cough relief, Salt water gargle 3-4xday, Finish entire antibiotic Special Instructions o Follow up with your Primary Care Physician in 7-10 days if no improvement in your condition. o Call or return to [facility] if you experience problems relating to your visit or call . All medications and their side effects were explained to the patient and were understood. At home instructions were explained to the patient and were understood. Report to the [facility] Emergency Department if any further problems occur. Medications as discussed Try Saline rinse kit Ibuprofen or Tylenol as needed Vicks Vaporubs as needed Add humidity to environment Diagnosis 1. Viral URI 2. Left otitis media *Prescriptions Prescriptions (FC) Medication Dose/Rte/Freq Days Qty Entered Max Daily Dose Amoxicillin/Clav 875-125 MG 1 TAB PO Q12H 14 05/08/19 (Augmentin* 875-125 MG) 1753 Strength: 1 EACH TABLET 05/08/19 1802 ALISA POLLOCK C.N.PLeonard << Signature on File>> Reported By: ALISA POLLOCK C.N.PLeonard Signed By: ALISA POLLOCK C.N.PLeonard Tests performed at: [address] [address] Normal [facility] Vital Signs Date Time Vital Sign Value Performing Clinician Faci lity 08-04-2021 15:20-0400 Body temperature 97.5 [degF] Dr. Isaiah Light Work Phone: [facility] Work Phone: 08-04-2021 15:20-0400 Diastolic blood pressure 69 mm[Hg] Dr. Isaiah Light Work Phone: [facility] Work Phone: 08-04-2021 15:20-0400 Heart rate 88 /min Dr. Isaiah Light Work Phone: [facility] Work Phone: 08-04-2021 15:20-0400 Respiratory rate 16 /min Dr. Isaiah Light Work Phone: [facility] Work Phone: 08-04-2021 15:20-0400 SaO2% (BldA) [Mass fraction] 93 % Dr. Isaiah Light Work Phone: [facility] Work Phone: 08-04-2021 15:20-0400 Systolic blood pressure 123 mm[Hg] Dr. Isaiah Light Work Phone: [facility] Work Phone: 08-04-2021 13:55-0400 Body temperature 98 [degF] Dr. Isaiah Light Work Phone: [facility] Work Phone: 08-04-2021 13:55-0400 Diastolic blood pressure 72 mm[Hg] Dr. Isaiah Light Work Phone: [facility] Work Phone: 08-04-2021 13:55-0400 Heart rate 75 /min Dr. Isaiah Light Work Phone: [facility] Work Phone: 08-04-2021 13:55-0400 Respiratory rate 18 /min Dr. Isaiah Light Work Phone: [facility] Work Phone: 08-04-2021 13:55-0400 SaO2% (BldA) [Mass fraction] 93 % Dr. Isaiah Light Work Phone: [facility] Work Phone: 08-04-2021 13:55-0400 Systolic blood pressure 123 mm[Hg] Dr. Isaiah Light Work Phone: [facility] Work Phone: 08-04-2021 11:41-0400 Body height 175.[address] Isaiah Light Work Phone: [facility] Work Phone: 08-04-2021 11:41-0400 Body mass index (BMI) [Ratio] 31.4 kg/m2 Dr. Isaiah Light Work Phone: [facility] Work Phone: 08-04-2021 11:41-0400 Body weight 96.[address] Isaiah Light Work Phone: [facility] Work Phone: 08-04-2021 07:32-0400 Body temperature 99 [degF] Dr. Isaiah Light Work Phone: [facility] Work Phone: 08-04-2021 07:32-0400 Diastolic blood pressure 72 mm[Hg] Dr. Isaiah Light Work Phone: [facility] Work Phone: 08-04-2021 07:32-0400 Heart rate 72 /min Dr. Isaiah Light Work Phone: [facility] Work Phone: 08-04-2021 07:32-0400 Respiratory rate 16 /min Dr. Isaiah Light Work Phone: [facility] Work Phone: 08-04-2021 07:32-0400 SaO2% (BldA) [Mass fraction] 99 % Dr. Isaiah Light Work Phone: [facility] Work Phone: 08-04-2021 07:32-0400 Systolic blood pressure 119 mm[Hg] Dr. Isaiah Light Work Phone: [facility] Work Phone: 08-04-2021 03:40-0400 Body height 175.[address] Isaiah Light Work Phone: [facility] Work Phone: 08-04-2021 03:40-0400 Body mass index (BMI) [Ratio] 31.8 kg/m2 Dr. Isaiah Light Work Phone: [facility] Work Phone: 08-04-2021 03:40-0400 Body weight 97.[address] Isaiah Light Work Phone: [facility] Work Phone: Encounters Encounter Date Encounter Type Care Provider Facility Start: 06-30-2024 End: 06-30-2024 ambulatory Rogers JOSHUA [place] [place]: 06-30-2024 End: 06-30-2024 ambulatory Rogers JOSHUA Facility:[facility] Start: 12-22-2023 End: 12-22-2023 ambulatory Isaiah Light Facility:[facility] Start: 03-05-2023 End: 03-05-2023 ambulatory [facility] Work Phone: Start: 03-05-2023 End: 03-05-2023 Patient encounter procedure [facility] Work Phone: Start: 01-15-2023 End: 01-15-2023 ambulatory [facility] Work Phone: Start: 01-15-2023 End: 01-15-2023 Patient encounter procedure [facility] Start: 06-24-2022 End: 06-24-2022 ambulatory [facility] Work Phone: Start: 06-24-2022 End: 06-24-2022 Patient encounter procedure [facility] Start: 05-13-2022 End: 05-13-2022 [facility] Start: 03-02-2022 End: 03-02-2022 ambulatory [facility] Work Phone: Start: 03-02-2022 End: 03-02-2022 Patient encounter procedure [facility] Start: 08-08-2021 End: 08-08-[address] [facility] Start: 08-08-2021 End: 08-08-[address] Isaiah Light Work Phone: [facility] Start: 08-04-2021 End: 08-04-2021 Evaluation and management of inpatient [facility] Start: 08-04-2021 Evaluation and management of inpatient [facility] Start: 07-15-2021 End: 07-15-[address] Isaiah Light Work Phone: [facility] Start: 07-02-2021 End: 07-02-[address] Isaiah Light Work Phone: [facility] Procedures Date Procedure Procedure Detail Performing Clinician Start: 03-05-2023 Diagnostic radiograp hy of abdomen Start: 06-24-2022 Diagnostic radiograp hy of calcaneus Start: 08-08-[address] Isaiah Light Work Phone: Start: 08-04-2021 End: 08-04-[address] Isaiah Light Work Phone: Start: 08-04-2021 Cystoscopy and retro grade pyelography Dr. Isaiah Light Work Phone: Start: 08-04-2021 Fluoroscopic guidance Jeanie Light Work Phone: Start: 08-04-2021 CT of abdominal aort a with contrast Dr. Isaiah Light Work Phone: Plan of Treatment Date Care Activity Detail Author Start: 08-04-2021 Anes transurethral w/urethrocystoscopy nos ANESTH BLADDER SURGERY [facility] Work Phone: Start: 08-04-2021 Cysto w/insert urete ral stent CYSTOSCOPY AND TREATMENT [facility] Work Phone: Start: 08-04-2021 Cystoscopy and retro grade pyelography Cysto,Retrograde,Inser tion Stent (Not Applicable) [facility] Work Phone: Start: 08-04-2021 Fluoroscopic guidance O.R. Fluoro fo r C-Arm [facility] Work Phone: Patient referral [facility] Work Phone: Immunizations Immunization Date Immunization Notes Care Provider Fa cili 04-22-2021 influenza, injectabl e, quadrivalent, preservative free [facility] 04-22-2021 influenza, seasonal, injectable Dr. Isaiah Light Work Phone: [facility] 09-13-2020 Covid (Moderna) Dr. Isaiah jenkins Work Phone: [facility] 08-16-2020 Covid (Moderna) Dr. Isaiah jenkins Work Phone: [facility] Payers Date Payer Category Payer Medicare [id number] 2023 Self-pay [id number] 2023 Unknown [id number] Unknown [id number] Unknown [id number] Unknown [id number] Unknown [id number] Social History Date Type Detail Facility Start: 08-04-2021 End: 09-15-2021 Tobacco smoking status ALIS Unknown if ever smoked [facility] Start: 1955 Sex Assigned At Male [facility] Medical Equipment Procedure Code Equipment Code Equipment Origin al Text Equipment Identifier Dates Cystoscopy, with retrograde pyelogram and ureteral stent insertion STENT,URETERAL PIGTAIL [id number] FDA Start: 08-04-2021 Cystoscopy, with retrograde pyelogram and ureteral stent insertion STENT,URETERAL PIGTAIL [id number] FDA Start: 08-04-2021 Cystoscopy, with retrograde pyelogram and ureteral stent insertion STENT,URETERAL PIGTAIL [id number] FDA Start: 08-04-2021 Cystoscopy, with retrograde pyelogram and ureteral stent insertion STENT,URETERAL PIGTAIL [id number] FDA Start: 08-04-2021 Cystoscopy, with retrograde pyelogram and ureteral stent insertion STENT,URETERAL PIGTAIL [id number] FDA Start: 08-04-2021 Cystoscopy, with retrograde pyelogram and ureteral stent insertion STENT,URETERAL PIGTAIL [id number] FDA Start: 08-04-2021 Functional Status Date Assessment Result Facility 08-04-2021 Functional status Ambulates [facility] Work Phone: Mental Status Date Assessment Result Facility 08-04-2021 Cognitive function Touch/Shaking [facility] Work Phone: Evaluation note Note Date & Type Note Facility Evaluation note Diagnosis Onset Date MAYELIN (acute kidney injury) ac axel Left ureteral calculus acute [facility] Work Phone: Evaluation note Note Date & Type Note Facility Evaluation note No assessment information availa ble [facility] Work Phone: Summary Purpose Family History No Family History Records FoundNo Family History Records Found Advance Directives No Advanced Directives Records Found Advance Directive Response Recorded Date/ Time Living Will No August 04, 2021 3:45am Power of Chemical Etch Operator No August 04 3:45am Advance Directive Response Recorded Date/ Time Living Will No August 04, 2021 8:50am Power of Chemical Etch Operator No August 04 8:50am Advance Directive Response Recorded Date/ Time Living Will No September 11, 2021 10:39am Power of Chemical Etch Operator No September 11 10:39am Advance Directive Response Recorded Date/ Time Living Will No September 11, 2021 9:39am Power of Chemical Etch Operator No September 11 9:39am Chief Complaint and Reason for Visit Chief Complaint OA SCANNING ONLY RENAL COLIC,MAYELIN Reason for Visit MAYELIN (acute kidney in jury) Left ureteral calculus Chief Complaint Pain in right arm Additional Source Comments (unrecognized sect ion and content) No Status Records FoundNo Status Records Found INFORMATION SOURCE (unrecogn ized section and content) DATE CREATED AUTHOR 05/09/2019 [facility] DATE CREATED AUTHOR AUTHOR'S ORGANIZ ATION 08/22/2024 [facility] Goals (unrecognized section and content) Goals may be documented in a n alternate sectionGoals may be documented in an alternate sectionGoals may be documented in an alternate sectionGoals may be documented in an alternate sectionGoals may be documented in an alternate sectionGoals may be documented in an alternate sectionGoals may be documented in an alternate sectionGoals may be documented in an alternate section Care Teams (unrecognized sec tion and content) Team Status: Active Member Role Status Dates Dr. Isaiah Light MD Family Provider Active Dr. Isaiah Light MD Primary Care Provider Active Team Status: Inactive Member Role Status Dates Dr. Isaiah Light MD Primary Care Provi steve, Attending Provider, Referring Provider Active Team Status: Inactive Member Role Status Dates Dr. Isaiah Light MD Primary Care Provider, Attending Provider Active Team Status: Inactive Member Role Status Dates Dr. Isaiah Light MD Primary Care Provider Active Dr. Catarino Wilkinson MD Attending Provider, Referr ing Provider Active FOR RECORDS PERTAINING TO PATIENTS WHO ARE OR HAVE BEEN ENROLLED IN A CHEMICAL DEPENDENCY/SUBSTANCEABUSE PROGRAM, SOME INFORMATION MAY BE OMITTED. This clinical summary was aggregated from multiple sources. Caution should be exercised in using it in the provision of clinical care. This summary normalizes information from multiple sources, and as a consequence, information in this document may materially change the coding, format and clinical context of patient data. In addition, data may be omitted in some cases. CLINICAL DECISIONS SHOULD BE BASED ON THE PRIMARY CLINICAL RECORDS. [employer] provides no warranty or guarantee of the accuracy or completeness of information in this document.
== END | disposition home or self-care (01) ==
LOC: MFPLAB 09:46
PROVIDERS: PCP Family Medicine; Referring Provider Family Medicine; Visit Provider Family Medicine
DX: E11.9 Type 2 diabetes mellitus without complications (principal); I10 Essential (primary) hypertension
CPT/HCPCS: 36415; 80048; 80061; 82043; 82570

== ENCOUNTER 2025-02-12 09:11 | Day surgery (SDC) | payer MEDICARE, SELFPAY ==
[2025-02-12] VITALS (11 sets, daily range): BP systolic 109–139; BP diastolic 65–91; PULSE 68–77; RESP 14–18; TEMP 36.2–36.9; O2SAT 94–98; BMI 32.1
[2025-02-12] MEDS: Lactated Ringers 1,000 ML 15 ML IV (09:47)
--- NOTE | 2025-02-12 09:53 | PCM.PRE.AN2 ---
ASA Classification* ASA Classification ASA Classification: 2 Assessment & Plan Anesthesia* Anesthesia Assessment Anesthesia Assessment: Discussed sedation and/or anesthesia options, risks, benefits, and alternatives with patient/parents/legal guardian/POA. Questions invited. The patient/parents/legal guardian/POA seems to understand and agrees to proceed with anesthesia plan. Reviewed the physical assessment, medical history, allergy history and patient home medications list prior to surgery/procedure/anesthetic and documented any changes. Performed airway and anesthesia risk assessments. Anesthesia Type Anesthesia Type: MAC History Source History Obtained from:: Patient and Chart Anesthesia Focused Assessment* Temperature: 97.1 F Pulse Rate: 77 Blood Pressure: 139/91 Respiratory Rate: 18 Pulse Ox: 98 Oxygen Delivery Method: Room Air Airway Assessment Mouth opens: >3 cm Mallampati Score: II Labs Anesthesia Preop lab: CBC WBC, (4.4-11.0) 9.2 K/mm3 08/08/21, 12:10 RBC, (4.6-6.2) 5.09 M/mm3 08/08/21, 12:10 Hgb, (13.0-16.5) 14.0 g/dL 08/08/21, 12:10 Hct, (40-54) 43.2 % 08/08/21, 12:10 Plt Count, (150-450) 243 K/mm3 08/08/21, 12:10 CHEMISTRY Potassium, (3.3-5.1) 4.3 mmol/L 10/20/24, 09:48 Sodium, (133-145) 137 mmol/L 10/20/24, 09:48 BUN, (4-19) 20 mg/dL H 10/20/24, 09:48 Creatinine, (0.70-1.20) 1.11 mg/dL 10/20/24, 09:48 Glucose, (70-99) 99 mg/dL 10/20/24, 09:48 POC Glucose, (74-106) 110 mg/dL H 09/15/21, 07:02 TSH, (0.358-3.74) 0.66 uIU/mL 10/04/19, 06:04 COAG Pre-Assessment Diagnosis/Proposed Procedure Planned Operative Procedure(s): Colonoscopy - Open Access Anesthesia History Anesthesia History - child care worker: Anesthesia History - child care worker Hx Hospitalization No 02/08/25 09:35 Any Problems With Anesthesia No 02/08/25 09:35 Cholinesterase deficiency No 02/08/25 09:35 You/Your Family Experience No 02/08/25 09:35 fever (hyperthermia) with Relationship Recent Exposure to Contagious No 02/12/25 09:35 Disease Does patient have nerve No 02/08/25 09:35 stimulator Patient instructed to have device shut off --Does patient have Pacemaker No 02/12/25 09:35 or ICD? When Was Last Pacemaker Check QUESTION #4 FULL TEXT: You/Your Family Experience fever (hyperthermia) with Anesthesia Last Oral Intake Last Oral intake: Last Oral Intake NPO since :02/12/25 09:35 Meds taken in AM with sips of No 02/12/25 09:35 water? Meds patient instructed to take am of surgery PONV PONV - child care worker: PONV - child care worker Female No 02/08/25 09:35 HX of Motion Sickness No 02/08/25 09:35 HX of N/V After Surgery No 02/08/25 09:35 Non-Smoker Yes 02/08/25 09:35 Duration of Surgery greater No 02/08/25 09:35 than 60 minutes Number of Risk Factors 1 02/08/25 09:35 PONV Score Low Risk 02/08/25 09:35 Height & Weight Height & Weight: Anesthesia: Height & Weight Height 5 ft 9 in 02/12/25 09:35 Weight: 98.9 kg 02/12/25 09:35 Body Mass Index (BMI) 32.1 02/12/25 09:35 Respiratory Assessment Respiratory Assessment - child care worker: Respiratory Tract Infection Hx - child care worker Hx Respiratory Tract Infection No 02/08/25 09:35 STOP Sleep Apnea STOP Sleep Apnea - child care worker: STOP Sleep Apnea - child care worker Hx Hypertension Yes: ON MEDS 02/08/25 09:35 Hx Sleep Apnea Yes 02/08/25 09:35 CPAP Yes 02/08/25 09:35 BIPAP No 02/08/25 09:35 Do you snore loudly (louder than talking or can be heard Do you often feel tired/ fatigued/ sleepy during daytime? Has anyone observed you stop breathing during sleep? STOP Results Positive 02/08/25 09:35 QUESTION #5 FULL TEXT : Do you snore loudly (louder than talking or can be heard through closed doors)? 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 Specify any problems Hx of Preganancy in last 3 N/A 02/08/25 09:35 Months Nurse Filling Out Transfusion JZOLLGOPAL 02/08/25 09:35 & Questions: Date: 02/08/25 02/08/25 09:35 Time: 09:37 02/08/25 09:35 Patient unable to answer at this time (ie. 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 Diabetes Kidney stones CPAP (continuous positive airway pressure) dependence Sleep apnea Hypertension Home Medications ?Medication ?Instructions ?Recorded ?Last Taken ?Type glimepiride 1 mg tablet 4 mg PO DAILY 08/04/21 02/10/25 History lisinopril 10 mg tablet 10 mg PO DAILY 08/04/21 02/09/25 History multivitamin 1 tab PO DAILY 08/04/21 02/09/25 History meloxicam 15 mg tablet 15 mg PO .QD 04/18/23 02/10/25 History empagliflozin 10 mg tablet 10 mg PO DAILY 02/08/25 02/10/25 History (Jardiance) Allergy/AdvReac Type Severity Reaction Status Date / Time Tetracyclines AdvReac Severe Abd Verified 02/12/25 09:34 cramps/diarrhea Surgical History Hx of colonoscopy Hx of inguinal hernia repair Hx of umbilical hernia repair Hx of cystoscopy Social History Smoking Status: Never smoker Review of Systems (Anesthesia) ROS Narrative System reviewed and no additional complaints, except as documented. Physical Exam Const alert, oriented x3 and average body habitus Resp normal respiratory effort and normal air movement Auscultation: clear to auscultation bilaterally Cardio regular rate and regular rhythm Back/Spine normal ROM Neuro oriented x3 and moves all extremities
--- NOTE | 2025-02-12 10:30 | COLBX_PTH ---
PATIENT: CLIFF BARBOZA LOC: EN U#:[id number] AGE/SX: 69/M ROOM: RE02/12/[address]: Dr. Gabriela Del Rio MD : 1955 BED: DIS: 02/12/2025 SPEC #: [id number] RECD: 02/12/25 12:23 STATUS: JERICHO RENatalie #: [id number] JEWELS: 02/12/25 10:[address]: Gabriela Del Rio DEPT: SURGICAL PATHOLOGY RECD BY: Sathya Chaudhry ENTERED: 02/12/25 13:23 SP TYPE: COLON BX OTHR DR: Dr. Isaiah Light MD Tissues: A - Ascending colon Procedures: Surgery Specimen Level IV HEADER OPERATION: Colonoscopy with polypectomy PRE-OP DIAGNOSIS: History of colonic polyps TISSUE SUBMITTED: A- Ascending colon polyp MICROSCOPIC DIAGNOSIS A. Ascending colon, polyp, biopsy: * Sessile serrated lesion. MICROSCOPIC DESCRIPTION Slides are reviewed. GROSS DESCRIPTION A. Received in fixative is one container labeled with the patient's name and designated Ascending colon polyp. The specimen consists of is a 0.8 x 0.5 x 0.3 cm pink-red focally fragmented polyp. The intact portion of the resection margin is inked and the polyp is bisected. Entirely submitted in 1 cassette. LA 02/12/2025 CPT:78291
--- NOTE | 2025-02-12 10:40 | H&P.OPEN ---
[facility] - General General Date of Service: 02/12/25 HPI Narrative CLIFF BAROBZA, is a 69 M who presents for screening colonoscopy due to history of colon polyps. Patient last colonoscopy was in 2021 had piecemeal resection of an ascending colon polyp?pathology was hyperplastic polyp. Patient has a possible family history of maternal grandfather with colon cancer. Patient has bowel movements daily denies any blood. Patient denies any chronic abdominal pain/nausea/vomiting/reflux. 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 Diabetes Kidney stones CPAP (continuous positive airway pressure) dependence Sleep apnea Hypertension Home Medications ?Medication ?Instructions ?Recorded ?Last Taken ?Type glimepiride 1 mg tablet 4 mg PO DAILY 08/04/21 02/10/25 History lisinopril 10 mg tablet 10 mg PO DAILY 08/04/21 02/09/25 History multivitamin 1 tab PO DAILY 08/04/21 02/09/25 History meloxicam 15 mg tablet 15 mg PO .QD 04/18/23 02/10/25 History empagliflozin 10 mg tablet 10 mg PO DAILY 02/08/25 02/10/25 History (Jardiance) Allergy/AdvReac Type Severity Reaction Status Date / Time Tetracyclines AdvReac Severe Abd Verified 02/12/25 09:34 cramps/diarrhea Surgical History Hx of colonoscopy Hx of inguinal hernia repair Hx of umbilical hernia repair Hx of cystoscopy Social History Smoking Status: Never smoker Past Medical/Surgical History Planned Operation Planned Operative Procedure(s): Colonoscopy - Open Access Previous Hospitalizations/Surgeries HX Hospitalizations: No Any Problems With Anesthesia: No You/Your Family Experience Fever (Hyperthermia) With Anes: No Cholinesterase deficiency: No Cardiovascular Hx of Irregular Heartbeat and/or Afib: No Hx Heart Attack: No Hx Congestive Heart Failure: No Hx Hypertension: Yes (ON MEDS) Hx Pacemaker: No Respiratory Hx Chronic Obstructive Pulmonary Disease (COPD): No Hx Asthma: No Hx Emphysema: No Hx Sleep Apnea: Yes CPAP: Yes BIPAP: No Hx Respiratory Tract Infection/Cold (presently): No Result (for STOP score): Positive Smoking Status: Never smoker Gastrointestinal Hx Ulcer: No Neurological Hx Seizures: No Hx Head/Neck Injury: No Hx Headaches: No Hx Back Injury/Pain: No Does patient have nerve stimulator: No Reproduction : No Miscellaneous Recent Exposure to Contagious Disease: No Allergies Tetracyclines Adverse Reaction (Severe, Verified 02/12/25 09:34) Abd cramps/diarrhea Discharge Is Pt Admitted From a Correction, or a Long Term: No After D/C, Where Do you Plan to Go: Return Home Vital Signs Vital Signs Vital Signs: 02/12/25 09:35 02/12/25 09:35 02/12/25 09:55 Temperature 97.1 F L 97.1 F L Temperature Source Temporal Pulse Rate 77 77 Respiratory Rate 18 18 Respiratory Pattern Normal Blood Pressure 139/91 H 139/91 H Blood Pressure Mean 107 Blood Pressure Source Monitor Blood Pressure Position Semi-Fowlers Blood Pressure Location Left Arm Pulse Ox 98 98 Oxygen Delivery Method Room Air Room Air Weight Weight: 218 lb 0.595 oz Body Mass Index (BMI) 32.1 Physical Exam Const alert, oriented x3 and no apparent distress HEENT normocephalic and head/scalp atraumatic Resp normal respiratory effort Cardio regular rate GI soft to palpation and non-tender; Negative for non-distended Palpation: Negative for guarding Extremity no clubbing, cyanosis or edema Skin no rashes or lesions noted Neuro CN's II-XII intact bilaterally Psych mental status grossly normal Assessment & Plan Assessment/Plan (1) Hx of colonic polyp: Surgery Risks - Colonoscopy I discussed with the patient the risks of the procedure: Yes Risks Include but are not Limited To: Risks include but are not limited to: Bleeding, perforation requiring further surgery, inability to complete colonoscopy requiring barium enema.
[2025-02-12] MEDS: Lidocaine 1% (5 ml sdv) 5 ML Vial IV (11:23)
--- NOTE | 2025-02-12 11:48 | OP.COLON_ITS ---
Patient Name: Clayton Chin Procedure Date: 02/12/2025 11:19 AM Date of : 1955 Age: 69 Procedure: Colonoscopy Indications: High risk colon cancer surveillance: Personal history of colonic polyps Providers: Gabriela Del Rio MD Referring MD: Isaiah Light MD Medicines: Monitored Anesthesia Care Patient Profile: This is a 69 year old male. Last Colonoscopy: September 2021. Complications: No immediate complications. Procedure: Pre-Anesthesia Assessment: - Prior to the procedure, a History and Physical was performed, and patient medications and allergies were reviewed. The patient's tolerance of previous anesthesia was also reviewed. The risks and benefits of the procedure and the sedation options and risks were discussed with the patient. All questions were answered, and informed consent was obtained. Prior Anticoagulants: The patient has taken no anticoagulant or antiplatelet agents. ASA Grade Assessment: Per anesthesia. After reviewing the risks and benefits, the patient was deemed in satisfactory condition to undergo the procedure. After I obtained informed consent, the scope was passed under direct vision. Throughout the procedure, the patient's blood pressure, pulse, and oxygen saturations were monitored continuously. The colonoscope was introduced through the anus and advanced to the cecum, identified by the appendiceal orifice, ileocecal valve and palpation. The colonoscopy was performed without difficulty. The patient tolerated the procedure well. The quality of the bowel preparation was good. Scope In: 11:27:54 AM Scope Withdrawal Time 0 hours 13 minutes 10 seconds Scope Out: 11:44:42 AM Total Procedure Duration Time 0 hours 16 minutes 48 seconds Findings: The perianal and digital rectal examinations were normal. A less than 5 mm polyp was found in the descending colon. The polyp was sessile. The polyp was removed with a hot snare. Resection and retrieval were complete. The exam was otherwise without abnormality on direct and retroflexion views. Impression: - One less than 5 mm polyp in the descending colon, removed with a hot snare. Resected and retrieved. - The examination was otherwise normal on direct and retroflexion views. Recommendation: - Discharge patient to home. - Resume previous diet. - Continue present medications. - Await pathology results. - Repeat colonoscopy in 5 years for surveillance based on pathology results. Procedure Code(s): --- Professional --- 97927, PT, Colonoscopy, flexible; with removal of tumor(s), polyp(s), or other lesion(s) by snare technique Diagnosis Code(s): --- Professional --- Z86.010, Personal history of colonic polyps D12.4, Benign neoplasm of descending colon CPT copyright 2021 [employer]. All rights reserved. The codes documented in this report are preliminary and upon national accounts sales review may be revised to meet current compliance requirements. MD Gabriela Soriano MD 02/12/2025 11:48:05 AM This report has been signed electronically. Number of Addenda: 0 Note Initiated On: 02/12/2025 11:19 AM
--- NOTE | 2025-02-12 11:48 | OP.PROVAT_ITS ---
02/12/2025 Isaiah Light MD [address] [id number] Re : Colonoscopy procedure for Clayton Chin Dear Dr. Light This procedure was performed on Wednesday, February 12, 2025. My impressions and recommendations are as follows: Impressions : - One less than 5 mm polyp in the descending colon, removed with a hot snare. Resected and retrieved. - The examination was otherwise normal on direct and retroflexion views. Recommendations : - Discharge patient to home. - Resume previous diet. - Continue present medications. - Await pathology results. - Repeat colonoscopy in 5 years for surveillance based on pathology results. My findings are described in the full procedure note, which is enclosed. If I can be of further assistance, please feel free to contact me at Doctor phone number(s): , Work: . Sincerely, MD Gabriela Soriano MD 02/12/2025 11:48:05 AM This report has been signed electronically.
--- NOTE | 2025-02-12 11:53 | PCM.POST.ANE ---
Anesthesia: Postop Eval I Current Vital Signs Temperature: 97.2 F Pulse Rate: 72 Blood Pressure: 112/65 Respiratory Rate: 14 Pulse Ox: 95 Assessment Airway patent: Yes Spontaneous unlabored respirations: Yes Mental status: Asleep nausea: No Vomiting: No Anesthesia Complication: No Fluid Hydration Crystalloid volume administer (ml): 800 Total IV fluid infused: 800 Progress Note Anesthesia document: Postop Eval 1 completed: Yes
--- NOTE | 2025-02-12 13:14 | POSTOPAN2_ITS ---
Anesthesia Postop Eval I Sum Postop Eval Completion status Anesthesia document: Postop Eval 1 completed: Yes Anesthesia Postop Eval I Summary Anesthesia Postop Eval I Summary: Anesthesia Postop Eval I: Assessment Summary Airway patent Yes 02/12/25 11:54 ENTERPRISE BUSINESS ARCHITECT.LUCIEOBNaresh Spontaneous unlabored Yes 02/12/25 11:54 ENTERPRISE BUSINESS ARCHITECTJULIÁN respirations Mental status Asleep 02/12/25 11:54 ENTERPRISE BUSINESS ARCHITECT.FABIOLA nausea No 02/12/25 11:54 ENTERPRISE BUSINESS ARCHITECT.FABIOLA Vomiting No 02/12/25 11:54 ENTERPRISE BUSINESS ARCHITECTJULIÁN Anesthesia Postop Eval I: Fluid Summary Crystalloid volume administer 800 02/12/25 11:54 ENTERPRISE BUSINESS ARCHITECT.FABIOLA (ml) Colloids volume administered ( ml) Blood Product volume administered (ml) Total IV fluid infused 800 02/12/25 11:54 ENTERPRISE BUSINESS ARCHITECTJULIÁN Anesthesia Postop Eval I: Summary Notes Anesthesia Complication No 02/12/25 11:54 JARAD Anesthesia Complication Comment: Post-operative progress note Anesthesia: Postop Eval II Evaluation Mental status: Awake and Calm Pain Level: 0 nausea: No Vomiting: No Complications Anesthesia Complication: No
--- NOTE | 2025-02-12 13:14 | PCM.POSTANE2 ---
Anesthesia Postop Eval I Sum Postop Eval Completion status Anesthesia document: Postop Eval 1 completed: Yes Anesthesia Postop Eval I Summary Anesthesia Postop Eval I Summary: Anesthesia Postop Eval I: Assessment Summary Airway patent Yes 02/12/25 11:54 CULVERT INSTALLER.[email or web address] Spontaneous unlabored Yes 02/12/25 11:54 CULVERT INSTALLERJULIÁN respirations Mental status Asleep 02/12/25 11:54 CULVERT INSTALLER.FABIOLA nausea No 02/12/25 11:54 CULVERT INSTALLER.FABIOLA Vomiting No 02/12/25 11:54 CULVERT INSTALLERJULIÁN Anesthesia Postop Eval I: Fluid Summary Crystalloid volume administer 800 02/12/25 11:54 CULVERT INSTALLER.FABIOLA (ml) Colloids volume administered ( ml) Blood Product volume administered (ml) Total IV fluid infused 800 02/12/25 11:54 CULVERT INSTALLERJULIÁN Anesthesia Postop Eval I: Summary Notes Anesthesia Complication No 02/12/25 11:54 JARAD Anesthesia Complication Comment: Post-operative progress note Anesthesia: Postop Eval II Evaluation Mental status: Awake and Calm Pain Level: 0 nausea: No Vomiting: No Complications Anesthesia Complication: No
== END 2025-02-12 12:48 | disposition home or self-care (01) ==
LOC: EN 09:12 → AC 09:13
PROVIDERS: PCP Family Medicine; Referring Provider Family Medicine; Visit Provider Surgery
PROC: 0DJD8ZZ Inspection of Lower Intestinal Tract, Via Natural or Artificial Opening Endoscopic (ICD-10-PCS; CPT 45378; principal; 2025-02-12 10:25)
DX: Z12.11 Encounter for screening for malignant neoplasm of colon (principal); E11.9 Type 2 diabetes mellitus without complications; Z79.84 Long term (current) use of oral hypoglycemic drugs; I10 Essential (primary) hypertension; Z86.0100 Personal history of colon polyps, unspecified; G47.30 Sleep apnea, unspecified; Z99.89 Dependence on other enabling machines and devices; Z79.899 Other long term (current) drug therapy; Z79.1 Long term (current) use of non-steroidal anti-inflammatories (NSAID); M19.90 Unspecified osteoarthritis, unspecified site; D12.4 Benign neoplasm of descending colon
CPT/HCPCS: 45385; 82962; 88305; J2405

== ENCOUNTER → 2025-03-08 | Outpatient (CLI) | payer MEDICARE, SELFPAY ==
--- NOTE | 2025-03-08 10:59 | RAD_ITS ---
PROCEDURE: KNEE 4 OR MORE VIEWS 03/08/2025 REASON FOR EXAM: PAIN TECHNIQUE: Procedure Code: RADKN Modality: DX Procedure: KNEE 4 OR MORE VIEWS Laterality: Right COMPARISON: None FINDINGS: There is no evidence of fracture or dislocation. There is mild arthritis of the patellofemoral joint. There is mild arthritis of the medial joint space compartment of the knee. There is no arthritis of the lateral joint space compartment of the knee. There is no knee joint effusion. The periarticular soft tissues are normal. RAD/Knee 4 or More Views IMPRESSION: Mild arthritis without knee joint effusion. Reading Location: [place] [id number]
--- NOTE | 2025-03-08 10:59 | RAD_ITS ---
PROCEDURE: KNEE 4 OR MORE VIEWS 03/08/2025 REASON FOR EXAM: PAIN TECHNIQUE: Procedure Code: RADKN Modality: DX Procedure: KNEE 4 OR MORE VIEWS Laterality: Left COMPARISON: None FINDINGS: There is no evidence of fracture or dislocation. There is mild arthritis of the patellofemoral joint. There is mild arthritis of the medial joint space compartment of the knee. There is no significant arthritis of the lateral joint space compartment of the knee. There is enthesopathy of the patella there is no knee joint effusion. The periarticular soft tissues are normal. RAD/Knee 4 or More Views IMPRESSION: Mild arthritis as described. Other findings as noted. Reading Location: [place] [id number]
== END | disposition home or self-care (01) ==
LOC: MTRAD 10:58
PROVIDERS: PCP Family Medicine; Referring Provider Family Medicine; Visit Provider Family Medicine
DX: M25.561 Pain in right knee (principal); M25.562 Pain in left knee
CPT/HCPCS: 73564